=== PATIENT | female | born 1945 | race Caucasian/White ===

== ENCOUNTER 2019-05-14 01:49 | Emergency (ER) | payer MEDICARE, MEDICAID ==
[~2019-05-14] VITALS: Ht 152.4 cm; Wt 55.5 kg
[~2019-05-14 01:49] MED LIST: BUPR150T8 PO; CARV-50 PO; HYDR12.522 PO; OMEP-84 PO; VALS160T2 PO
[2019-05-14 02:27] LABS: BASOPHILS % (AUTO) 0.3 % (0-1); EOSINOPHILS # (AUTO) 0.1 X10'3 (0-0.9); EOSINOPHILS % (AUTO) 0.6 % (0-6); HEMATOCRIT 42.6 % (35.0-45.0); HEMOGLOBIN 14.2 g/dl (12.0-16.0); LYMPHOCYTES # (AUTO) 1.4 X10'3 (1.1-4.8); LYMPHOCYTES % (AUTO) 10.9 % (21-51); MEAN CORPUSCULAR HEMOGLOBIN 30.3 PG (27.0-31.0); MEAN CORPUSCULAR HGB CONC 33.5 g/dL (33.0-36.5); MEAN CORPUSCULAR VOLUME 90.5 FL (78-98); MEAN PLATELET VOLUME 9.4 FL (7.4-10.4); MONOCYTES # (AUTO) 0.4 X10'3 (0-0.9); MONOCYTES % (AUTO) 2.9 % (2-12); NEUTROPHILS # (AUTO) 10.7 X10'3 (1.8-7.7); NEUTROPHILS % (AUTO) 85.3 % (42-75); PLATELET COUNT 172 X10'3 (140-440); RED BLOOD COUNT 4.71 X10'6 (4.20-5.60); RED CELL DISTRIBUTION WIDTH 14.3 % (11.5-14.5); WHITE BLOOD COUNT 12.5 X10'3 (4.5-11.0)
[2019-05-14] MEDS ORDERED: normal saline 1000ml 1,000 ML IV ONE (02:30)
[2019-05-14 02:37] LABS: ALANINE AMINOTRANSFERASE 25 U/L (12-78); ALBUMIN 3.3 G/DL (3.4-5.0); ALKALINE PHOSPHATASE 92 IU/L (46-116); ANION GAP 9 (8-16); ASPARTATE AMINO TRANSFERASE 33 U/L (10-37); BILIRUBIN,TOTAL 0.6 MG/DL (0.1-1.0); BLOOD UREA NITROGEN 26 MG/DL (7-18); BUN/CREATININE RATIO 14.9 (6.6-38.0); CALCIUM 8.6 MG/DL (8.5-10.1); CHLORIDE 106 MMOL/L (99-107); CREATININE 1.74 MG/DL (0.40-0.90); GLUCOSE 150 MG/DL (70-104); LIPASE 142 U/L (73-393); MAGNESIUM 2.3 MG/DL (1.5-2.4); SODIUM 141 MMOL/L (135-145); TOTAL CARBON DIOXIDE 25.7 MMOL/L (24-32); TOTAL PROTEIN 6.6 G/DL (6.4-8.2); eGFR 29 ML/MIN
--- NOTE | 2019-05-14 02:56 | NUR ---
pts new temp is 97.5. bear hugger and warm blankets placed on pt. Sterile straight cath performed. Urine sample sent to lab. Pt had 75cc of chavo colored urine out.
[2019-05-14 02:58] LABS: CLARITY,URINE CLEAR (Clear); GLUCOSE, URINE NEGATIVE (Neg); KETONES,URINE TRACE mg/dl (Neg); LEUKOCYTE ESTERASE ,URINE NEGATIVE (Neg); NITRITES, URINE NEGATIVE (Neg); OCCULT BLOOD,URINE NEGATIVE (Neg); PROTEIN,URINE 30 mg/dl (Neg)
[2019-05-14 03:06] LABS: COLOR,URINE DARK YELLOW (Yellow); UA COLLECTION TYPE STRAIGHT CATH
[2019-05-14 03:07] LABS: WBC,URINE 0-4 /HPF (0-4)
[2019-05-14 03:08] LABS: BACTERIA,URINE FEW /HPF (Neg); FINE GRANULAR CAST 0-3 /LPF (NEGATIVE); MUCUS STRANDS FEW /LPF (Neg); RBC,URINE 0-2 /HPF (0-2); SQUAMOUS EPITHELIAL CELL,UR FEW /LPF (FEW)
--- NOTE | 2019-05-14 03:27 | NUR ---
PT GIVEN IV FLUIDS VIARANGER FLUID WARMER. PT HAD TWO BM'S. LOOSE BROWN STOOLS. DR. TORIBIO MADE AWARE. NO NEW ORDRS AT THIS TIME.
--- NOTE | 2019-05-14 03:56 | NUR ---
PTS SON IS AT BEDSIDE AND ALERTS STAFF THAT HIS MOTHER NEEDS TO HAVE A BM AND THAT SHE HAS ALREADY STARTED TO GO IN THE BED. STAFF WENT TO GET A NEW GOWN AND WIPES AND SON BECOMES VERBALLY AGGRESSIVE AND UPSET THAT NO ONE IS TENDING TO HIS MOTHER FAST ENOUGH. I ADVISED THE SON THAT IF SHE HAS ALREADY STARTED TO GO IN THE BED THAT WE WILL CLEAN HER UP ONCE SHE IS FINISHED (WE HAVE ALREADY DONE THIS 3 TIMES PREVIOUSLY BEFORE HE ARRIVED) - HE ASKS IF HE CAN WAIT IN THE WAITING ROOM AND ASKS WHERE IT IS. I POINTED TOWARD THE LOBBY AND TOLD HIM IT WAS AT THE MAIN ENTERANCE, WHERE HE CAME FROM. HE THEN WALKED OUT TO [facility] BEING VERBAL WITH STAFF THE WHOLE WAY. Addendum: 05/14/19 at 0408 by SHAILA CORRECTION - IT IS NOT THE PTS SON, IT IS HER SIGNIFICANT OTHER "SHARRI"
[2019-05-14 04:12] VITALS: BP 140/63
== END 2019-05-14 04:41 | disposition home or self-care (01) ==
LOC: ER 01:49
DX: R53.1 Weakness (principal); R19.7 Diarrhea, unspecified; R05 Cough; R10.84 Generalized abdominal pain; E78.00 Pure hypercholesterolemia, unspecified; K21.9 Gastro-esophageal reflux disease without esophagitis; Z91.040 Latex allergy status; Z79.899 Other long term (current) drug therapy
CPT/HCPCS: 36415; 71045; 74176; 80053; 81001; 83605; 83690; 83735; 84145; 85025; 87040; 99284; J7030

== ENCOUNTER 2019-05-17 19:14 | Inpatient (IN) | payer MEDICARE, MEDICAID ==
[~2019-05-17] VITALS: Ht 152.4 cm; Wt 54.0 kg
[2019-05-17 19:54] LABS: BASOPHILS % (AUTO) 0.4 % (0-1); EOSINOPHILS # (AUTO) 0.2 X10'3 (0-0.9); EOSINOPHILS % (AUTO) 1.3 % (0-6); HEMATOCRIT 38.7 % (35.0-45.0); HEMOGLOBIN 12.9 g/dl (12.0-16.0); LYMPHOCYTES # (AUTO) 1.5 X10'3 (1.1-4.8); MEAN CORPUSCULAR HEMOGLOBIN 30.2 PG (27.0-31.0); MEAN CORPUSCULAR HGB CONC 33.4 g/dL (33.0-36.5); MEAN CORPUSCULAR VOLUME 90.4 FL (78-98); MEAN PLATELET VOLUME 9.2 FL (7.4-10.4); MONOCYTES % (AUTO) 8.7 % (2-12); NEUTROPHILS # (AUTO) 8.9 X10'3 (1.8-7.7); NEUTROPHILS % (AUTO) 76.6 % (42-75); PLATELET COUNT 226 X10'3 (140-440); RED BLOOD COUNT 4.28 X10'6 (4.20-5.60); RED CELL DISTRIBUTION WIDTH 13.5 % (11.5-14.5); WHITE BLOOD COUNT 11.7 X10'3 (4.5-11.0)
[2019-05-17 19:57] LABS: ALANINE AMINOTRANSFERASE 26 U/L (12-78); ALBUMIN 2.6 G/DL (3.4-5.0); ALBUMIN/GLOBULIN RATIO 0.8 (1.1-1.5); ALKALINE PHOSPHATASE 91 IU/L (46-116); ANION GAP 10 (8-16); ASPARTATE AMINO TRANSFERASE 34 U/L (10-37); BILIRUBIN,TOTAL 0.3 MG/DL (0.1-1.0); BLOOD UREA NITROGEN 14 MG/DL (7-18); BUN/CREATININE RATIO 12.4 (6.6-38.0); CALCIUM 8.3 MG/DL (8.5-10.1); CHLORIDE 105 MMOL/L (99-107); CREATININE 1.13 MG/DL (0.40-0.90); GLUCOSE 136 MG/DL (70-104); POTASSIUM 3.6 MMOL/L (3.5-5.1); SODIUM 142 MMOL/L (135-145); TOTAL PROTEIN 5.9 G/DL (6.4-8.2); eGFR 47 ML/MIN
[2019-05-17] MEDS ORDERED: normal saline 1000ml 1,000 ML IVB ONE (19:58)
[2019-05-17] MEDS ORDERED: ondansetron/PF 4mg/2ml inj IV ONE (20:00)
[2019-05-17] MEDS ORDERED: normal saline 1000ML IV soln IVB ONE (20:40)
[2019-05-17 23:14] LABS: CLARITY,URINE SLIGHTLY CLOUDY (Clear); GLUCOSE, URINE NEGATIVE (Neg); KETONES,URINE NEGATIVE (Neg); LEUKOCYTE ESTERASE ,URINE NEGATIVE (Neg); NITRITES, URINE NEGATIVE (Neg); OCCULT BLOOD,URINE NEGATIVE (Neg); PH,URINE 5.5 (4.8-8.0); PROTEIN,URINE 30 mg/dl (Neg)
[2019-05-17 23:16] LABS: COLOR,URINE AMBER (Yellow); UA COLLECTION TYPE CLN CATCH MIDSTREAM
[2019-05-17 23:30] LABS: HYALINE CASTS 0-3 /LPF (NEGATIVE)
[2019-05-17 23:31] LABS: WBC,URINE 0-4 /HPF (0-4)
[2019-05-17 23:32] LABS: BACTERIA,URINE FEW /HPF (Neg)
[2019-05-17 23:33] LABS: MUCUS STRANDS MANY /LPF (Neg); SQUAMOUS EPITHELIAL CELL,UR MANY /LPF (FEW)
[2019-05-17 23:40] LABS: RBC,URINE 0-2 /HPF (0-2)
[2019-05-17] MEDS ORDERED: enoxaparin 100mg/ml syringe SUBCUT ONE (23:40)
[2019-05-17] MEDS ORDERED: aspirin 81mg tab.chew PO ONE (23:40)
[2019-05-17] MEDS ORDERED: enoxaparin 60mg/0.6ml syringe SUBCUT ONE (23:40)
[2019-05-17] MEDS ORDERED: LISI-600 PO (23:41)
[2019-05-17] MEDS ORDERED: AMLO5TAB PO (23:53)
[2019-05-18] VITALS (9 sets, daily range): BP systolic 132–172; BP diastolic 63–86
[2019-05-18] MEDS ORDERED: ondansetron/PF 4mg/2ml inj IV PRN (00:50)
[2019-05-18] MEDS ORDERED: magnesium hydroxide 30ml (MOM) UD suspension PO PRN (00:50)
[2019-05-18] MEDS ORDERED: acetaminophen 325mg tablet PO PRN (00:50)
[2019-05-18] MEDS ORDERED: mag hydrox/Alum hydrox/simeth 30ml oral suspension PO PRN (00:50)
[2019-05-18] MEDS ORDERED: regadenoson 0.4mg/5ml syringe IV PRN (00:55)
[2019-05-18] MEDS ORDERED: nitroGLYCERIN 0.4mg SUBLingual tab SL PRN (00:55)
[2019-05-18] MEDS ORDERED: aminophylline 250mg/10ml inj. IV PRN (00:55)
[2019-05-18] MEDS ORDERED: metoprolol tartrate 1mg/ml inj IV PRN (00:55)
--- NOTE | 2019-05-18 01:20 | NUR ---
pt arrived to PCU unit from the ER via [facility], was able to transfer herself from [facility] to bed. pt is alert and oriented and is able to make her needs known. Pt is not in any respiratory distress and denies chest pain at this time, is on room air. Significant other is at bedside. will continue to monitor pt
[2019-05-18 03:02] LABS: CHOL/HDL RATIO 2.5 (0.00-4.99); CHOLESTEROL 145 MG/DL (0-200); HDL CHOLESTEROL 58 MG/DL (35-60); LDL CHOLESTEROL 77 MG/DL (50-100); TRIGLYCERIDES 63 MG/DL (20-135)
--- NOTE | 2019-05-18 06:15 | NUR ---
Problems reprioritized. Patient report given, questions answered & plan of care reviewed with Stephanie RN.
--- NOTE | 2019-05-18 06:18 | NUR ---
Patient in room PCU 3012. I have received report from LUIS ANTONIO Earl and had the opportunity to ask questions and assume patient care.
[2019-05-18] MEDS ORDERED: lisinopril 10 MG tablet PO SCH (08:00)
[2019-05-18] MEDS ORDERED: heparin, porcine 5000 units/ml vial SQ SCH (08:00)
[2019-05-18] MEDS ORDERED: buPROPion SR 150mg tablet PO SCH (08:00)
[2019-05-18] MEDS ORDERED: aspirin 325mg tablet PO SCH (08:30)
[2019-05-18 09:28] LABS: BASOPHILS # (AUTO) 0.1 X10'3 (0-0.2); BASOPHILS % (AUTO) 0.6 % (0-1); EOSINOPHILS % (AUTO) 0.6 % (0-6); HEMATOCRIT 37.7 % (35.0-45.0); HEMOGLOBIN 12.7 g/dl (12.0-16.0); LYMPHOCYTES # (AUTO) 2.2 X10'3 (1.1-4.8); LYMPHOCYTES % (AUTO) 25.1 % (21-51); MEAN CORPUSCULAR HEMOGLOBIN 30.3 PG (27.0-31.0); MEAN CORPUSCULAR HGB CONC 33.6 g/dL (33.0-36.5); MEAN PLATELET VOLUME 8.8 FL (7.4-10.4); MONOCYTES # (AUTO) 0.9 X10'3 (0-0.9); MONOCYTES % (AUTO) 9.7 % (2-12); NEUTROPHILS # (AUTO) 5.6 X10'3 (1.8-7.7); PLATELET COUNT 254 X10'3 (140-440); RED BLOOD COUNT 4.19 X10'6 (4.20-5.60); RED CELL DISTRIBUTION WIDTH 13.7 % (11.5-14.5); WHITE BLOOD COUNT 8.8 X10'3 (4.5-11.0)
[2019-05-18 09:42] LABS: ALANINE AMINOTRANSFERASE 33 U/L (12-78); ALBUMIN 2.7 G/DL (3.4-5.0); ALBUMIN/GLOBULIN RATIO 0.8 (1.1-1.5); ALKALINE PHOSPHATASE 89 IU/L (46-116); ANION GAP 6 (8-16); ASPARTATE AMINO TRANSFERASE 33 U/L (10-37); BILIRUBIN,TOTAL 0.2 MG/DL (0.1-1.0); BLOOD UREA NITROGEN 11 MG/DL (7-18); BUN/CREATININE RATIO 13.8 (6.6-38.0); CALCIUM 8.4 MG/DL (8.5-10.1); CHLORIDE 108 MMOL/L (99-107); GLUCOSE 82 MG/DL (70-104); POTASSIUM 3.3 MMOL/L (3.5-5.1); SODIUM 142 MMOL/L (135-145); TOTAL CARBON DIOXIDE 27.6 MMOL/L (24-32); eGFR 70 ML/MIN
--- NOTE | 2019-05-18 09:56 | NUR ---
Sent to Dr Narayanan PAGER ID: [phone] MESSAGE: RE: Vida Muñoz [id number]. No diet orders for after GWEN. -Stephanie [phone]
--- NOTE | 2019-05-18 11:40 | NUR ---
Sent to Dr Narayanan PAGER ID: [phone] MESSAGE: RE: Vida Muñoz [id number]. Stress test results in. -Stephanie [phone]
[2019-05-18] MEDS ORDERED: CARV6.253 PO (13:57)
[2019-05-18] MEDS ORDERED: potassium Cl 20 mEq SR tablet PO STA (14:01)
[2019-05-19] MEDS ORDERED: aspirin 81mg tablet.DR PO SCH (08:00)
== END 2019-05-18 15:20 | disposition home or self-care (01) | DRG 682 ==
LOC: ER 19:16 → ED HOLD 05-18 00:46 → PCU 3S 05-18 01:20
PROVIDERS: ADMIT Internal Medicine; ATTEND Family Medicine
PROC: 4A02XM4 Measurement of Cardiac Total Activity, External Approach (ICD-10-PCS; principal; 2019-05-18)
PROC: 3E033HZ Introduction of Radioactive Substance into Peripheral Vein, Percutaneous Approach (ICD-10-PCS; 2019-05-18)
DX: N17.0 Acute kidney failure with tubular necrosis (principal); I21.A1 Myocardial infarction type 2; E87.6 Hypokalemia; E86.0 Dehydration; E78.00 Pure hypercholesterolemia, unspecified; I10 Essential (primary) hypertension; K21.9 Gastro-esophageal reflux disease without esophagitis; I95.9 Hypotension, unspecified; R00.1 Bradycardia, unspecified; Z91.040 Latex allergy status; Z79.899 Other long term (current) drug therapy; Z87.891 Personal history of nicotine dependence; Z82.49 Family history of ischemic heart disease and other diseases of the circulatory system
CPT/HCPCS: 36415; 71045; 78452; 80053; 80061; 81001; 83605; 83880; 84145; 84484; 85025; 87040; 87081; 93005; 93017; 93306; 96361; 96372; 96374; 99285; A9500; G0378; J0280; J1644; J1650; J2405; J2785

== ENCOUNTER 2019-09-08 06:19 | Day surgery (SDC) | payer MEDICARE, MEDICAID ==
[2019-09-07 13:21] LABS: BASOPHILS # (AUTO) 0.1 X10'3 (0-0.2); BASOPHILS % (AUTO) 1.4 % (0-1); EOSINOPHILS # (AUTO) 0.2 X10'3 (0-0.9); EOSINOPHILS % (AUTO) 4.4 % (0-6); HEMATOCRIT 40.5 % (35.0-45.0); HEMOGLOBIN 13.5 g/dl (12.0-16.0); LYMPHOCYTES # (AUTO) 1.7 X10'3 (1.1-4.8); LYMPHOCYTES % (AUTO) 31.4 % (21-51); MEAN CORPUSCULAR HEMOGLOBIN 29.7 PG (27.0-31.0); MEAN CORPUSCULAR HGB CONC 33.3 g/dL (33.0-36.5); MEAN CORPUSCULAR VOLUME 89.4 FL (78-98); MEAN PLATELET VOLUME 9.5 FL (7.4-10.4); MONOCYTES # (AUTO) 0.5 X10'3 (0-0.9); MONOCYTES % (AUTO) 9.3 % (2-12); NEUTROPHILS # (AUTO) 2.9 X10'3 (1.8-7.7); NEUTROPHILS % (AUTO) 53.5 % (42-75); PLATELET COUNT 247 X10'3 (140-440); RED BLOOD COUNT 4.53 X10'6 (4.20-5.60); RED CELL DISTRIBUTION WIDTH 13.9 % (11.5-14.5); WHITE BLOOD COUNT 5.4 X10'3 (4.5-11.0)
[2019-09-07 13:38] LABS: ALBUMIN 3.5 G/DL (3.4-5.0); ANION GAP 7 (8-16); BLOOD UREA NITROGEN 23 MG/DL (7-18); BUN/CREATININE RATIO 24.7 (6.6-38.0); CALCIUM 8.9 MG/DL (8.5-10.1); CHLORIDE 106 MMOL/L (99-107); CREATININE 0.93 MG/DL (0.40-0.90); GLUCOSE 73 MG/DL (70-104); SODIUM 139 MMOL/L (135-145); TOTAL CARBON DIOXIDE 25.7 MMOL/L (24-32); eGFR 59 ML/MIN
[2019-09-07 13:39] LABS: PARTIAL THROMBOPLASTIN TIME 24 SECONDS (22-32)
[2019-09-08] VITALS (11 sets, daily range): BP systolic 125–178; BP diastolic 65–97
[~2019-09-08] VITALS: Ht 152.4 cm; Wt 56.1 kg
[~2019-09-08 06:19] MED LIST changes: -CARV-50 PO; +CARV6.253 PO; -HYDR12.522 PO; +LISI-600 PO; -OMEP-84 PO; -VALS160T2 PO
[2019-09-08] MEDS ORDERED: diphenhydrAMINE 25mg capsule PO PRN (06:35)
[2019-09-08] MEDS ORDERED: normal saline 1,000 ML IV SCH (06:35)
[2019-09-08] MEDS ORDERED: LORazepam 0.5 MG tablet PO PRN (06:35)
[2019-09-08] MEDS ORDERED: CARV-49 PO (06:54)
[2019-09-08] MEDS ORDERED: ASPI-611 PO (06:56)
[2019-09-08] MEDS ORDERED: LIDOcaine/PRILOcaine 5gm cream TP ONE (07:10)
[2019-09-08] MEDS ORDERED: nitroGLYCERIN-Tridil 50MG/D5W 250 ML IV ONE (07:28)
[2019-09-08] MEDS ORDERED: LIDOcaine 1% (10mg/ml)w/preservative injection 20ml MDV ONE (07:29)
[2019-09-08] MEDS ORDERED: iohexol 350 MG/ML 50ML vial IV ONE (07:29)
[2019-09-08] MEDS ORDERED: heparin 1,000unit/ml 10ml vial 10 ML ONE (07:29)
[2019-09-08] MEDS ORDERED: verapamil 2.5 mg/ml inj IV ONE (07:29)
[2019-09-08] MEDS ORDERED: fentaNYL/PF 50MCG/1 ML 2ML syringe ONE (07:29)
[2019-09-08] MEDS ORDERED: iohexol 350MG/ML 100ml bottle IV ONE (07:29)
[2019-09-08] MEDS ORDERED: midazolam 2 mg/2 ml injection ONE (07:29)
--- NOTE | 2019-09-08 08:00 | NUR ---
Pt taken to [facility] by Leanne Leyva
--- NOTE | 2019-09-08 09:02 | NUR ---
Pt back in room. vasc band in place. Pt denies pain, denies sob, denies cp. pt vs stable as charted. Will continue to monitor
[2019-09-08] MEDS ORDERED: normal saline 1000ml 1,000 ML IV SCH (09:10)
--- NOTE | 2019-09-08 09:32 | NUR ---
pt sitting up in bed, sipping tea and eating arsenio crackers.
[2019-09-08] MEDS ORDERED: calcium carbonate 500mg chew tablet PO SCH (12:50)
== END 2019-09-08 15:00 | disposition home or self-care (01) ==
LOC: SSTAY O 06:19
PROVIDERS: ATTEND Internal Medicine Cardiovascular Disease
DX: R06.02 Shortness of breath (principal); I25.10 Atherosclerotic heart disease of native coronary artery without angina pectoris; I27.20 Pulmonary hypertension, unspecified; I10 Essential (primary) hypertension; I35.0 Nonrheumatic aortic (valve) stenosis; I25.2 Old myocardial infarction; I27.29 Other secondary pulmonary hypertension; F15.10 Other stimulant abuse, uncomplicated; F41.9 Anxiety disorder, unspecified; M16.11 Unilateral primary osteoarthritis, right hip; M17.11 Unilateral primary osteoarthritis, right knee; Z98.890 Other specified postprocedural states; Z87.891 Personal history of nicotine dependence
CPT/HCPCS: 36415; 80048; 85025; 85610; 85730; 93005; 93458; C1769; C1894; J1644; J2001; J2250; J3010; J7030; Q0163; Q9967; 99152; 99153; A4620; A5120; J3490

== ENCOUNTER 2019-10-13 14:07 | Emergency (ER) | payer MEDICARE, MEDICAID ==
[~2019-10-13] VITALS: Ht 154.9 cm; Wt 60.0 kg
[~2019-10-13 14:07] MED LIST changes: +ASPI-611 PO; +CARV-49 PO; -CARV6.253 PO
[2019-10-13 17:08] VITALS: BP 164/86
== END 2019-10-13 17:25 | disposition home or self-care (01) ==
LOC: ER 14:08
DX: S00.03XA Contusion of scalp, initial encounter (principal); I10 Essential (primary) hypertension; E78.00 Pure hypercholesterolemia, unspecified; K21.9 Gastro-esophageal reflux disease without esophagitis; Z98.890 Other specified postprocedural states; Z91.041 Radiographic dye allergy status; Z79.82 Long term (current) use of aspirin; Z79.899 Other long term (current) drug therapy; W18.39XA Other fall on same level, initial encounter; Y93.01 Activity, walking, marching and hiking; Y92.410 Unspecified street and highway as the place of occurrence of the external cause; Y99.8 Other external cause status
CPT/HCPCS: 70450; 99284

== ENCOUNTER → 2019-10-23 | Outpatient (CLI) | payer MEDICARE, MEDICAID ==
[2019-10-23] VITALS (21 sets, daily range): BP systolic 92–172; BP diastolic 49–88
== END | disposition home or self-care (01) ==
LOC: CARD DIAG 09:37
PROVIDERS: ATTEND Internal Medicine Cardiovascular Disease
DX: R55 Syncope and collapse (principal)
CPT/HCPCS: 93660

== ENCOUNTER 2019-11-16 11:47 | Outpatient (CLI) | payer MEDICARE, MEDICAID ==
[2019-11-16 13:03] LABS: ALANINE AMINOTRANSFERASE 19 U/L (12-78); ALBUMIN 3.5 G/DL (3.4-5.0); ALBUMIN/GLOBULIN RATIO 1.1 (1.1-1.5); ALKALINE PHOSPHATASE 81 IU/L (46-116); ANION GAP 6 (8-16); ASPARTATE AMINO TRANSFERASE 20 U/L (10-37); BILIRUBIN,TOTAL 0.6 MG/DL (0.1-1.0); BLOOD UREA NITROGEN 16 MG/DL (7-18); BUN/CREATININE RATIO 15.2 (6.6-38.0); CALCIUM 8.7 MG/DL (8.5-10.1); CHLORIDE 110 MMOL/L (99-107); CHOL/HDL RATIO 2.1 (0.00-4.99); CHOLESTEROL 184 MG/DL (0-200); CREATININE 1.05 MG/DL (0.40-0.90); GLUCOSE 80 MG/DL (70-104); HDL CHOLESTEROL 89 MG/DL (35-60); LDL CHOLESTEROL 78 MG/DL (50-100); POTASSIUM 3.8 MMOL/L (3.5-5.1); SODIUM 145 MMOL/L (135-145); TOTAL CARBON DIOXIDE 29.1 MMOL/L (24-32); TOTAL PROTEIN 6.6 G/DL (6.4-8.2); TRIGLYCERIDES 57 MG/DL (20-135); eGFR 51 ML/MIN
== END 2019-11-16 23:59 | disposition home or self-care (01) ==
LOC: LAB 11:47
PROVIDERS: ATTEND Physician Assistant Medical
DX: E78.5 Hyperlipidemia, unspecified (principal)
CPT/HCPCS: 36415; 80053; 80061

== ENCOUNTER 2024-01-11 17:21 | Inpatient (IN) | payer MEDICARE, MEDICAID ==
[~2024-01-11] VITALS: Ht 157.5 cm; Wt 62.0 kg
[~2024-01-11 17:21] MED LIST changes: +ALEN70TA60 PO; +CHOL20002 PO; +GINK125C PO; -LISI-600 PO; +LISI40TA13 PO; +MAGN400T39 PO; +MEMA10TA22 PO; +ROSU40TA71 PO
[2024-01-11 18:09] LABS: BASOPHILS # (AUTO) 0.1 X10'3 (0-0.2); BASOPHILS % (AUTO) 0.9 % (0-1); EOSINOPHILS # (AUTO) 0.1 X10'3 (0-0.9); EOSINOPHILS % (AUTO) 1.1 % (0-6); HEMATOCRIT 34.5 % (35.0-45.0); HEMOGLOBIN 11.2 g/dl (12.0-16.0); LYMPHOCYTES # (AUTO) 1.1 X10'3 (1.1-4.8); LYMPHOCYTES % (AUTO) 11.2 % (21-51); MEAN CORPUSCULAR HEMOGLOBIN 29.9 PG (27.0-31.0); MEAN CORPUSCULAR HGB CONC 32.4 g/dL (33.0-36.5); MEAN CORPUSCULAR VOLUME 92.4 FL (78-98); MEAN PLATELET VOLUME 9.7 FL (7.4-10.4); MONOCYTES # (AUTO) 0.6 X10'3 (0-0.9); MONOCYTES % (AUTO) 6.1 % (2-12); NEUTROPHILS # (AUTO) 8.1 X10'3 (1.8-7.7); NEUTROPHILS % (AUTO) 80.7 % (42-75); PLATELET COUNT 259 X10'3 (140-440); RED BLOOD COUNT 3.73 X10'6 (4.20-5.60); RED CELL DISTRIBUTION WIDTH 16.2 % (11.5-14.5); WHITE BLOOD COUNT 10.1 X10'3 (4.5-11.0)
[2024-01-11] MEDS: normal saline 1000ml 1,000 ML IV ONE ×2 (18:11→23:41)
[2024-01-11 18:23] LABS: ALANINE AMINOTRANSFERASE 52 U/L (12-78); ALBUMIN/GLOBULIN RATIO 0.8 (1.1-1.5); ALKALINE PHOSPHATASE 230 IU/L (46-116); ANION GAP 6 (8-16); ASPARTATE AMINO TRANSFERASE 42 U/L (10-37); BILIRUBIN,TOTAL 0.5 MG/DL (0.1-1.0); BLOOD UREA NITROGEN 30 MG/DL (7-18); BUN/CREATININE RATIO 16.9 (10.0-20.0); CALCIUM 9.6 MG/DL (8.5-10.1); CHLORIDE 101 MMOL/L (99-107); CREATININE 1.78 MG/DL (0.40-0.90); GLUCOSE 136 MG/DL (70-104); LIPASE 47 U/L (16-77); POTASSIUM 5.3 MMOL/L (3.5-5.1); SODIUM 134 MMOL/L (135-145); TOTAL CARBON DIOXIDE 26.6 MMOL/L (24-32); eCRCL 21 ML/MIN; eGFR 28 ML/MIN
[2024-01-11 19:18] LABS: BILIRUBIN,URINE SMALL (Neg); CLARITY,URINE CLOUDY (Clear); COLOR,URINE YELLOW (Yellow); GLUCOSE, URINE NEGATIVE (Neg); KETONES,URINE NEGATIVE (Neg); LEUKOCYTE ESTERASE ,URINE SMALL (Neg); NITRITES, URINE NEGATIVE (Neg); OCCULT BLOOD,URINE NEGATIVE (Neg); PROTEIN,URINE TRACE mg/dl (Neg)
[2024-01-11 19:29] LABS: SQUAMOUS EPITHELIAL CELL,UR MANY /LPF (FEW); UA COLLECTION TYPE STRAIGHT CATH
[2024-01-11 19:31] LABS: WBC CLUMPS,URINE FEW /HPF (NEGATIVE)
[2024-01-11 19:32] LABS: BACTERIA,URINE 1+ /HPF (Neg)
[2024-01-11] MEDS: CefTRIAXone/D5W-Rocephin 1gm 50 ML IV ONE (23:41)
[2024-01-12] MEDS: LORazepam 2 mg/ml vial IV ONE (00:15)
[2024-01-12] MEDS: normal saline 1000ml 1,000 ML IV ONE (00:15)
[2024-01-12] MEDS ORDERED: morphine 2 MG/ML inj. syringe IV PRN (00:40)
[2024-01-12] MEDS ORDERED: acetaminophen 325mg tablet PO PRN (00:40)
[2024-01-12] MEDS ORDERED: potassium Cl 20 mEq SR tablet PO PRN ×2 (00:40)
[2024-01-12] MEDS ORDERED: magnesium Cl slow-release 64mg tablet PO PRN (00:40)
[2024-01-12] MEDS ORDERED: ondansetron/PF 4mg/2ml inj IV PRN (00:40)
[2024-01-12] MEDS ORDERED: potassium Cl 40MEQ/1/2NS 520ml 520 ML IV PRN (00:40)
[2024-01-12] MEDS ORDERED: magnesium sulf-water 2g/50mL 50 ML IV PRN (00:40)
[2024-01-12] MEDS ORDERED: magnesium sulf-water 4G/100mL 100 ML IV PRN (00:40)
[2024-01-12] MEDS ORDERED: normal saline 1000ml 1,000 ML IV SCH (00:40)
[2024-01-12] MEDS: enalaprilat dihydrate 2.5mg/2ml vial IV ONE (02:22)
[2024-01-12] MEDS: normal saline 1000ml 1,000 ML IV SCH (03:48)
[2024-01-12] MEDS: metroNIDAZOLE-Flagyl 500mg/NS 100 ML IV SCH (03:48)
[2024-01-12 04:01] LABS: BASOPHILS % (AUTO) 0.3 % (0-1); EOSINOPHILS % (AUTO) 0 % (0-6); HEMATOCRIT 31.8 % (35.0-45.0); HEMOGLOBIN 10.4 g/dl (12.0-16.0); LYMPHOCYTES # (AUTO) 1.6 X10'3 (1.1-4.8); LYMPHOCYTES % (AUTO) 12.9 % (21-51); MEAN CORPUSCULAR HEMOGLOBIN 29.9 PG (27.0-31.0); MEAN CORPUSCULAR HGB CONC 32.7 g/dL (33.0-36.5); MEAN CORPUSCULAR VOLUME 91.5 FL (78-98); MEAN PLATELET VOLUME 9.6 FL (7.4-10.4); MONOCYTES # (AUTO) 0.7 X10'3 (0-0.9); MONOCYTES % (AUTO) 5.4 % (2-12); NEUTROPHILS # (AUTO) 10.3 X10'3 (1.8-7.7); NEUTROPHILS % (AUTO) 81.4 % (42-75); PLATELET COUNT 244 X10'3 (140-440); RED BLOOD COUNT 3.48 X10'6 (4.20-5.60); RED CELL DISTRIBUTION WIDTH 16.1 % (11.5-14.5); WHITE BLOOD COUNT 12.7 X10'3 (4.5-11.0)
[2024-01-12 04:10] LABS: APTT 27 SECONDS (22-32); PROTHROMBIN TIME 9.8 SECONDS (9.0-12.0)
[2024-01-12 04:14] LABS: INR 0.9 INR
[2024-01-12 04:17] LABS: ALANINE AMINOTRANSFERASE 44 U/L (12-78); ALBUMIN 2.8 G/DL (3.4-5.0); ALBUMIN/GLOBULIN RATIO 0.8 (1.1-1.5); ALKALINE PHOSPHATASE 208 IU/L (46-116); ANION GAP 10 (8-16); ASPARTATE AMINO TRANSFERASE 35 U/L (10-37); BILIRUBIN,TOTAL 0.3 MG/DL (0.1-1.0); BLOOD UREA NITROGEN 30 MG/DL (7-18); BUN/CREATININE RATIO 21.3 (10.0-20.0); CALCIUM 8.6 MG/DL (8.5-10.1); CHLORIDE 104 MMOL/L (99-107); CREATININE 1.41 MG/DL (0.40-0.90); GLUCOSE 119 MG/DL (70-104); POTASSIUM 4.8 MMOL/L (3.5-5.1); SODIUM 135 MMOL/L (135-145); TOTAL CARBON DIOXIDE 21.5 MMOL/L (24-32); TOTAL PROTEIN 6.4 G/DL (6.4-8.2); eCRCL 26 ML/MIN; eGFR 36 ML/MIN
[2024-01-12 04:38] LABS: ABG HCO3 19.3 mmol/L (22.0-26.0); ABG OXYGEN SATURATION 98.5 % (94-97); ABG PH (T) 7.439 (7.350-7.450); ABG PO2 (T) 108.6 mmHg (75.0-100.0); ALLEN'S TEST POSITIVE; FCOHb 0.9 % (0.0-3.9); FHHb 1.5 % (0.0-5.0); FLOW 2 L/min; FMetHb 0.3 % (0.0-1.5); FO2Hb 97.3 % (94-97); MODE NASAL CANNULA; PATIENT TEMPERATURE 36.6; TOTAL HEMOGLOBIN 10.8 G/dl (12.0-16.0)
[2024-01-12] MEDS ORDERED: ERGO500041 PO (04:42)
[2024-01-12] MEDS: K and/or MAG REPLACEMENT MC SCH (09:29)
[2024-01-12] MEDS: heparin, porcine 5000 units/ml vial SQ SCH (09:35)
[2024-01-12] MEDS: pantoprazole 40 MG vial IV SCH (09:36)
[2024-01-12 12:15] LABS: HEMOGLOBIN A1C 5.1 % (4.5-6.2)
[2024-01-12 12:47] LABS: CHOL/HDL RATIO 1.9 (0.00-4.99); CHOLESTEROL 121 MG/DL (0-200); HDL CHOLESTEROL 63 MG/DL (35-60); LDL CHOLESTEROL 48 MG/DL (50-100); THYROID STIMULATING HORMONE 1.48 ulU/ml (0.34-4.50); TRIGLYCERIDES 48 MG/DL (20-135)
[2024-01-12 13:00] VITALS: PULSE 80; RESP 16; TEMP 98.4; O2SAT 92
[2024-01-12 15:00] VITALS: BP 103/53; PULSE 85; RESP 16; TEMP 98.3; O2SAT 92
[2024-01-12 18:00] VITALS: BP 112/44; PULSE 89; RESP 16; TEMP 98.9; O2SAT 96
[2024-01-12 20:00] VITALS: RESP 16; O2SAT 96
[2024-01-12] MEDS ORDERED: ciprofloxacin lact 400MG/200ML 200 ML IV SCH (20:00)
[2024-01-12 22:00] VITALS: BP 126/45; PULSE 83; RESP 18; TEMP 98.1; O2SAT 95
[2024-01-12] MEDS: CefTRIAXone/D5W-Rocephin 1gm 50 ML IV SCH (22:56)
[2024-01-13] VITALS (8 sets, daily range): BP systolic 136–149; BP diastolic 44–71; PULSE 67–91; RESP 13–22; TEMP 97.3–99.1; O2SAT 94–99
[2024-01-13] MEDS: metroNIDAZOLE-Flagyl 500mg/NS 100 ML IV SCH (04:33)
[2024-01-13 06:34] LABS: BASOPHILS % (AUTO) 0.5 % (0-1); EOSINOPHILS # (AUTO) 0.1 X10'3 (0-0.9); EOSINOPHILS % (AUTO) 1.9 % (0-6); HEMATOCRIT 28.7 % (35.0-45.0); HEMOGLOBIN 9.3 g/dl (12.0-16.0); LYMPHOCYTES # (AUTO) 1.3 X10'3 (1.1-4.8); LYMPHOCYTES % (AUTO) 22.1 % (21-51); MEAN CORPUSCULAR HEMOGLOBIN 29.9 PG (27.0-31.0); MEAN CORPUSCULAR HGB CONC 32.3 g/dL (33.0-36.5); MEAN CORPUSCULAR VOLUME 92.6 FL (78-98); MEAN PLATELET VOLUME 9.5 FL (7.4-10.4); MONOCYTES # (AUTO) 0.6 X10'3 (0-0.9); NEUTROPHILS % (AUTO) 65.5 % (42-75); PLATELET COUNT 213 X10'3 (140-440); RED CELL DISTRIBUTION WIDTH 16.3 % (11.5-14.5); WHITE BLOOD COUNT 6.1 X10'3 (4.5-11.0)
[2024-01-13 06:47] LABS: APTT 27 SECONDS (22-32); PROTHROMBIN TIME 10.3 SECONDS (9.0-12.0)
[2024-01-13 06:59] LABS: ALANINE AMINOTRANSFERASE 36 U/L (12-78); ALBUMIN 2.4 G/DL (3.4-5.0); ALBUMIN/GLOBULIN RATIO 0.7 (1.1-1.5); ALKALINE PHOSPHATASE 156 IU/L (46-116); ANION GAP 7 (8-16); ASPARTATE AMINO TRANSFERASE 25 U/L (10-37); BILIRUBIN,TOTAL 0.2 MG/DL (0.1-1.0); BLOOD UREA NITROGEN 19 MG/DL (7-18); BUN/CREATININE RATIO 20.2 (10.0-20.0); CALCIUM 8.2 MG/DL (8.5-10.1); CHLORIDE 109 MMOL/L (99-107); CREATININE 0.94 MG/DL (0.40-0.90); GLUCOSE 87 MG/DL (70-104); MAGNESIUM 2.4 MG/DL (1.5-2.4); PHOSPHORUS 2.7 MG/DL (2.3-4.5); POTASSIUM 4.3 MMOL/L (3.5-5.1); SODIUM 137 MMOL/L (135-145); TOTAL PROTEIN 5.8 G/DL (6.4-8.2); eCRCL 39 ML/MIN; eGFR 58 ML/MIN
[2024-01-13] MEDS ORDERED: non-formulary drug (Alendronate Sodium* (Fosamax*) 1 TAB) PO SCH (15:50)
[2024-01-13] MEDS: cholecalciferol (vitamin D3) 1,000 unit (25mcg) tablet PO SCH (20:40)
[2024-01-13] MEDS: memantine 5mg tablet PO SCH (20:40)
[2024-01-14] VITALS (8 sets, daily range): BP systolic 124–157; BP diastolic 55–79; PULSE 67–87; RESP 11–18; TEMP 97–98.1; O2SAT 93–98
[2024-01-14 06:04] LABS: BASOPHILS # (AUTO) 0.1 X10'3 (0-0.2); BASOPHILS % (AUTO) 1.2 % (0-1); EOSINOPHILS # (AUTO) 0.2 X10'3 (0-0.9); EOSINOPHILS % (AUTO) 3.4 % (0-6); HEMOGLOBIN 10.7 g/dl (12.0-16.0); LYMPHOCYTES # (AUTO) 1.5 X10'3 (1.1-4.8); LYMPHOCYTES % (AUTO) 25.5 % (21-51); MEAN CORPUSCULAR HEMOGLOBIN 30.2 PG (27.0-31.0); MEAN CORPUSCULAR HGB CONC 32.5 g/dL (33.0-36.5); MEAN CORPUSCULAR VOLUME 93.1 FL (78-98); MEAN PLATELET VOLUME 9.4 FL (7.4-10.4); MONOCYTES # (AUTO) 0.6 X10'3 (0-0.9); MONOCYTES % (AUTO) 10.8 % (2-12); NEUTROPHILS # (AUTO) 3.5 X10'3 (1.8-7.7); NEUTROPHILS % (AUTO) 59.1 % (42-75); PLATELET COUNT 225 X10'3 (140-440); RED BLOOD COUNT 3.54 X10'6 (4.20-5.60); WHITE BLOOD COUNT 5.8 X10'3 (4.5-11.0)
[2024-01-14 06:13] LABS: ALANINE AMINOTRANSFERASE 26 U/L (12-78); ALBUMIN 2.5 G/DL (3.4-5.0); ALBUMIN/GLOBULIN RATIO 0.7 (1.1-1.5); ALKALINE PHOSPHATASE 160 IU/L (46-116); ANION GAP 8 (8-16); APTT 28 SECONDS (22-32); ASPARTATE AMINO TRANSFERASE 28 U/L (10-37); BILIRUBIN,TOTAL 0.3 MG/DL (0.1-1.0); BLOOD UREA NITROGEN 10 MG/DL (7-18); BUN/CREATININE RATIO 13.5 (10.0-20.0); CALCIUM 8.5 MG/DL (8.5-10.1); CHLORIDE 109 MMOL/L (99-107); CREATININE 0.74 MG/DL (0.40-0.90); GLUCOSE 87 MG/DL (70-104); PHOSPHORUS 2.6 MG/DL (2.3-4.5); PROTHROMBIN TIME 10.8 SECONDS (9.0-12.0); SODIUM 139 MMOL/L (135-145); TOTAL CARBON DIOXIDE 21.7 MMOL/L (24-32); TOTAL PROTEIN 6.1 G/DL (6.4-8.2); eCRCL 50 ML/MIN; eGFR 76 ML/MIN
[2024-01-14 06:14] LABS: POTASSIUM 4.2 MMOL/L (3.5-5.1)
[2024-01-14] MEDS: magnesium oxide 400mg tablet PO SCH (08:00)
[2024-01-14] MEDS: aspirin 81mg tab.chew PO SCH (08:00)
[2024-01-14] MEDS: buPROPion SR 150mg tablet PO SCH (11:43)
[2024-01-14] MEDS: lisinopril 20mg tablet PO SCH (11:45)
[2024-01-14] MEDS: carvedilol 6.25mg tablet PO SCH (11:46)
[2024-01-14] MEDS: atorvastatin 20mg tablet PO SCH (11:47)
[2024-01-15 02:00] VITALS: BP 159/66; PULSE 93; RESP 17; TEMP 97.7; O2SAT 96
[2024-01-15 06:00] VITALS: BP 174/86; PULSE 76; RESP 12; TEMP 97.6; O2SAT 94
[2024-01-15 06:04] LABS: BASOPHILS % (AUTO) 0.8 % (0-1); EOSINOPHILS # (AUTO) 0.2 X10'3 (0-0.9); HEMATOCRIT 31.1 % (35.0-45.0); HEMOGLOBIN 10.1 g/dl (12.0-16.0); LYMPHOCYTES # (AUTO) 1.6 X10'3 (1.1-4.8); LYMPHOCYTES % (AUTO) 28.6 % (21-51); MEAN CORPUSCULAR HEMOGLOBIN 29.8 PG (27.0-31.0); MEAN CORPUSCULAR HGB CONC 32.6 g/dL (33.0-36.5); MEAN CORPUSCULAR VOLUME 91.3 FL (78-98); MEAN PLATELET VOLUME 9.4 FL (7.4-10.4); MONOCYTES # (AUTO) 0.6 X10'3 (0-0.9); MONOCYTES % (AUTO) 10.5 % (2-12); NEUTROPHILS # (AUTO) 3.1 X10'3 (1.8-7.7); NEUTROPHILS % (AUTO) 56.1 % (42-75); PLATELET COUNT 236 X10'3 (140-440); RED CELL DISTRIBUTION WIDTH 15.8 % (11.5-14.5); WHITE BLOOD COUNT 5.5 X10'3 (4.5-11.0)
[2024-01-15 06:12] LABS: APTT 29 SECONDS (22-32); INR 1.1 INR; PROTHROMBIN TIME 11.3 SECONDS (9.0-12.0)
[2024-01-15 06:22] LABS: ALANINE AMINOTRANSFERASE 25 U/L (12-78); ALBUMIN 2.6 G/DL (3.4-5.0); ALBUMIN/GLOBULIN RATIO 0.8 (1.1-1.5); ALKALINE PHOSPHATASE 138 IU/L (46-116); ANION GAP 9 (8-16); ASPARTATE AMINO TRANSFERASE 25 U/L (10-37); BILIRUBIN,TOTAL 0.3 MG/DL (0.1-1.0); BLOOD UREA NITROGEN 10 MG/DL (7-18); BUN/CREATININE RATIO 14.3 (10.0-20.0); CALCIUM 8.7 MG/DL (8.5-10.1); CHLORIDE 110 MMOL/L (99-107); GLUCOSE 88 MG/DL (70-104); MAGNESIUM 1.5 MG/DL (1.5-2.4); PHOSPHORUS 3.2 MG/DL (2.3-4.5); POTASSIUM 4.1 MMOL/L (3.5-5.1); SODIUM 141 MMOL/L (135-145); TOTAL CARBON DIOXIDE 22.2 MMOL/L (24-32); TOTAL PROTEIN 5.9 G/DL (6.4-8.2); eCRCL 52 ML/MIN; eGFR 81 ML/MIN
[2024-01-15 08:00] VITALS: RESP 16; O2SAT 94
[2024-01-15] MEDS: pantoprazole 40mg Tablet.DR PO SCH (08:21)
[2024-01-15] MEDS ORDERED: aspirin 81mg tab.chew PO SCH (09:15)
[2024-01-15] MEDS ORDERED: magnesium oxide 400mg tablet PO SCH (09:15)
[2024-01-15 11:00] VITALS: BP 134/59; PULSE 77; RESP 13; TEMP 98.7; O2SAT 96
[2024-01-15] MEDS: aspirin 81mg tab.chew PO SCH (12:05)
[2024-01-15] MEDS: magnesium oxide 400mg tablet PO SCH (12:05)
== END 2024-01-15 13:22 | DRG 682 ==
LOC: ER 17:22 → ED HOLD 01-12 00:42 → EDBEDREQ 01-12 10:59 → PCU 3S 01-12 12:57
PROVIDERS: ADMIT Internal Medicine Critical Care Medicine; ATTEND Family Medicine
DX: N17.0 Acute kidney failure with tubular necrosis (principal); G93.41 Metabolic encephalopathy; N39.0 Urinary tract infection, site not specified; I95.9 Hypotension, unspecified; K52.9 Noninfective gastroenteritis and colitis, unspecified; E86.0 Dehydration; E87.5 Hyperkalemia; E78.00 Pure hypercholesterolemia, unspecified; M81.0 Age-related osteoporosis without current pathological fracture; K21.9 Gastro-esophageal reflux disease without esophagitis; Z79.82 Long term (current) use of aspirin; Z79.899 Other long term (current) drug therapy; Z87.891 Personal history of nicotine dependence
CPT/HCPCS: 36415; 36600; 70450; 71045; 74176; 80053; 80061; 81001; 82803; 83036; 83605; 83690; 83735; 84100; 84145; 84443; 85018; 85025; 85610; 85730; 86885; 86900; 86901; 87040; 87081; 87088; 87324; 87449; 93005; 96365; 97110; 97161; 97530; 99291; A6212; A6250; A6266; A6446; A6449; G0378; J0696; J1644; J2470; J3490; J7030

== ENCOUNTER 2024-01-26 12:53 | Emergency (ER) | payer MEDICARE, MEDICAID ==
[~2024-01-26] VITALS: Ht 154.9 cm; Wt 54.0 kg
[~2024-01-26 12:53] MED LIST changes: +ERGO500041 PO
[2024-01-26 13:00] VITALS: TEMP 97.9
[2024-01-26 16:14] VITALS: BP 145/70; PULSE 75; RESP 18; O2SAT 98
== END 2024-01-26 16:30 | disposition home or self-care (01) ==
LOC: ER 12:54
DX: S72.491A Other fracture of lower end of right femur, initial encounter for closed fracture (principal); E78.00 Pure hypercholesterolemia, unspecified; K21.9 Gastro-esophageal reflux disease without esophagitis; Z91.040 Latex allergy status; Z79.899 Other long term (current) drug therapy; Z79.82 Long term (current) use of aspirin; W19.XXXA Unspecified fall, initial encounter; Y93.89 Activity, other specified; Y92.89 Other specified places as the place of occurrence of the external cause; Y99.8 Other external cause status
CPT/HCPCS: 73502; 73552; 99285

== ENCOUNTER 2024-03-03 11:35 | Inpatient (IN) | payer MEDICARE, MEDICAID ==
[~2024-03-03] VITALS: Ht 152.4 cm; Wt 53.6 kg
[2024-03-03 12:32] LABS: BASOPHILS % (AUTO) 0.5 % (0-1); EOSINOPHILS % (AUTO) 0.3 % (0-6); HEMATOCRIT 35.2 % (35.0-45.0); HEMOGLOBIN 11.4 g/dl (12.0-16.0); LYMPHOCYTES % (AUTO) 10.5 % (21-51); MEAN CORPUSCULAR HEMOGLOBIN 29.2 PG (27.0-31.0); MEAN CORPUSCULAR HGB CONC 32.3 g/dL (33.0-36.5); MEAN CORPUSCULAR VOLUME 90.4 FL (78-98); MEAN PLATELET VOLUME 9.6 FL (7.4-10.4); MONOCYTES # (AUTO) 0.8 X10'3 (0-0.9); MONOCYTES % (AUTO) 9.1 % (2-12); NEUTROPHILS # (AUTO) 7.3 X10'3 (1.8-7.7); NEUTROPHILS % (AUTO) 79.6 % (42-75); PLATELET COUNT 172 X10'3 (140-440); WHITE BLOOD COUNT 9.2 X10'3 (4.5-11.0)
[2024-03-03 12:46] LABS: ALANINE AMINOTRANSFERASE 26 U/L (12-78); ALBUMIN 3.1 G/DL (3.4-5.0); ALBUMIN/GLOBULIN RATIO 0.8 (1.1-1.5); ALKALINE PHOSPHATASE 109 IU/L (46-116); ANION GAP 11 (8-16); ASPARTATE AMINO TRANSFERASE 21 U/L (10-37); BILIRUBIN,TOTAL 0.5 MG/DL (0.1-1.0); BLOOD UREA NITROGEN 26 MG/DL (7-18); BUN/CREATININE RATIO 28.3 (10.0-20.0); CHLORIDE 108 MMOL/L (99-107); CREATININE 0.92 MG/DL (0.40-0.90); GLUCOSE 105 MG/DL (70-104); POTASSIUM 3.6 MMOL/L (3.5-5.1); SODIUM 144 MMOL/L (135-145); TOTAL CARBON DIOXIDE 24.9 MMOL/L (24-32); TOTAL PROTEIN 6.8 G/DL (6.4-8.2); eCRCL 36 ML/MIN; eGFR 59 ML/MIN
[2024-03-03 12:54] LABS: PRO BRAIN NATRIURETIC PEPTIDE 5394 PG/ML (0-450)
[2024-03-03] MEDS ORDERED: iohexol 350MG/ML 100ml bottle IV ONE (14:24)
[2024-03-03] MEDS: ipratropium/albuterol 3ml nebule NEB ONE (15:32)
[2024-03-03 15:33] VITALS: PULSE 73; RESP 16; RESP 20; O2SAT 99
[2024-03-03 17:30] LABS: MAGNESIUM 1.9 MG/DL (1.5-2.4)
[2024-03-03] MEDS ORDERED: magnesium hydroxide 30ml (MOM) UD suspension PO PRN (18:00)
[2024-03-03] MEDS ORDERED: magnesium Cl slow-release 64mg tablet PO PRN (18:00)
[2024-03-03] MEDS ORDERED: potassium Cl 40MEQ/1/2NS 520ml 520 ML IV PRN (18:00)
[2024-03-03] MEDS ORDERED: acetaminophen 325mg tablet PO PRN (18:00)
[2024-03-03] MEDS ORDERED: potassium Cl 20 mEq SR tablet PO PRN ×2 (18:00)
[2024-03-03] MEDS ORDERED: ondansetron/PF 4mg/2ml inj IV PRN (18:00)
[2024-03-03] MEDS ORDERED: magnesium sulf-water 4G/100mL 100 ML IV PRN (18:00)
[2024-03-03] MEDS ORDERED: magnesium sulf-water 2g/50mL 50 ML IV PRN (18:00)
[2024-03-03] MEDS ORDERED: mag hydrox/Alum hydrox/simeth 30ml oral suspension PO PRN (18:00)
[2024-03-03] MEDS ORDERED: morphine 2 MG/ML inj. syringe IV PRN ×2 (18:00)
[2024-03-03] MEDS ORDERED: docusate sod 100mg capsule PO PRN (18:00)
[2024-03-03] MEDS ORDERED: ipratropium/albuterol 3ml nebule NEB PRN (18:15)
[2024-03-03] MEDS ORDERED: pantoprazole 40mg Tablet.DR PO SCH (18:45)
[2024-03-03] MEDS: K and/or MAG REPLACEMENT MC SCH (20:00)
[2024-03-03] MEDS: normal saline 500ml IV soln 500 ML IV ONE (20:05)
[2024-03-03] MEDS: methylPREDNISolone sod succ 125mg/2ml vial IV ONE (20:05)
[2024-03-03] MEDS: guaiFENesin ER 600mg tablet PO SCH (20:10)
[2024-03-03] MEDS: heparin, porcine 5000 units/ml vial SQ SCH (20:10)
[2024-03-03 21:24] VITALS: PULSE 68; RESP 20; O2SAT 95
[2024-03-04] VITALS (7 sets, daily range): BP systolic 96–137; BP diastolic 54–71; PULSE 66–83; RESP 14–20; TEMP 97.5–98.2; O2SAT 91–98
[2024-03-04] MEDS ORDERED: ALEN70TA80 PO (03:06)
[2024-03-04] MEDS ORDERED: AMLO10TA PO (03:07)
[2024-03-04] MEDS ORDERED: ATOR-2 PO (03:09)
[2024-03-04 03:12] LABS: BASOPHILS % (AUTO) 0.1 % (0-1); EOSINOPHILS % (AUTO) 0 % (0-6); HEMATOCRIT 33.6 % (35.0-45.0); HEMOGLOBIN 10.8 g/dl (12.0-16.0); LYMPHOCYTES # (AUTO) 0.7 X10'3 (1.1-4.8); LYMPHOCYTES % (AUTO) 11.7 % (21-51); MEAN CORPUSCULAR HEMOGLOBIN 28.7 PG (27.0-31.0); MEAN CORPUSCULAR VOLUME 89.6 FL (78-98); MEAN PLATELET VOLUME 9.8 FL (7.4-10.4); MONOCYTES # (AUTO) 0.1 X10'3 (0-0.9); MONOCYTES % (AUTO) 1.3 % (2-12); NEUTROPHILS # (AUTO) 4.9 X10'3 (1.8-7.7); NEUTROPHILS % (AUTO) 86.9 % (42-75); PLATELET COUNT 190 X10'3 (140-440); RED BLOOD COUNT 3.75 X10'6 (4.20-5.60); RED CELL DISTRIBUTION WIDTH 14.5 % (11.5-14.5); WHITE BLOOD COUNT 5.7 X10'3 (4.5-11.0)
[2024-03-04 03:22] LABS: ALANINE AMINOTRANSFERASE 24 U/L (12-78); ALBUMIN 2.9 G/DL (3.4-5.0); ALBUMIN/GLOBULIN RATIO 0.8 (1.1-1.5); ALKALINE PHOSPHATASE 130 IU/L (46-116); ANION GAP 11 (8-16); ASPARTATE AMINO TRANSFERASE 21 U/L (10-37); BILIRUBIN,TOTAL 0.4 MG/DL (0.1-1.0); BLOOD UREA NITROGEN 33 MG/DL (7-18); BUN/CREATININE RATIO 37.1 (10.0-20.0); CALCIUM 9.2 MG/DL (8.5-10.1); CHLORIDE 109 MMOL/L (99-107); CREATININE 0.89 MG/DL (0.40-0.90); GLUCOSE 159 MG/DL (70-104); MAGNESIUM 2.2 MG/DL (1.5-2.4); SODIUM 142 MMOL/L (135-145); TOTAL CARBON DIOXIDE 21.8 MMOL/L (24-32); TOTAL PROTEIN 6.6 G/DL (6.4-8.2); eCRCL 37 ML/MIN; eGFR 61 ML/MIN
[2024-03-04 04:59] LABS: BILIRUBIN,URINE NEGATIVE (Neg); CLARITY,URINE CLEAR (Clear); COLOR,URINE YELLOW (Yellow); GLUCOSE, URINE NEGATIVE (Neg); KETONES,URINE NEGATIVE (Neg); LEUKOCYTE ESTERASE ,URINE NEGATIVE (Neg); NITRITES, URINE NEGATIVE (Neg); OCCULT BLOOD,URINE NEGATIVE (Neg); PROTEIN,URINE 30 mg/dl (Neg); UROBILINOGEN,URINE 0.2 E.U/dL (0.2-1.0)
[2024-03-04 05:04] LABS: UA COLLECTION TYPE CLN CATCH MIDSTREAM
[2024-03-04 05:08] LABS: WBC,URINE 0-4 /HPF (0-4)
[2024-03-04 05:09] LABS: BACTERIA,URINE NONE SEEN /HPF (Neg); RBC,URINE 0-2 /HPF (0-2); SQUAMOUS EPITHELIAL CELL,UR FEW /LPF (FEW)
[2024-03-04] MEDS: normal saline 1000ml 1,000 ML IV SCH (05:41)
[2024-03-04] MEDS: normal saline 500ml IV soln 500 ML IV ONE (05:42)
[2024-03-04] MEDS ORDERED: methylPREDNISolone sod succ 125mg/2ml vial IV SCH (08:00)
[2024-03-04] MEDS ORDERED: azithromycin/NS 500mg/250ml 250 ML IV SCH (08:00)
[2024-03-04] MEDS ORDERED: CefTRIAXone 2gm/D5W 50ml BAG 50 ML IV SCH (08:00)
[2024-03-04] MEDS ORDERED: non-formulary drug (Alendronate Sodium* (Fosamax*) 1 TAB) PO SCH (08:45)
[2024-03-04] MEDS: carvedilol 6.25mg tablet PO SCH (10:10)
[2024-03-04] MEDS: buPROPion SR 150mg tablet PO SCH (10:10)
[2024-03-04] MEDS: atorvastatin 20mg tablet PO SCH (10:10)
[2024-03-04] MEDS: pantoprazole 40mg Tablet.DR PO SCH (10:11)
[2024-03-04] MEDS: aspirin 81mg, enteric-coated 1 TAB TABLET.DR PO SCH (10:11)
[2024-03-04] MEDS: CefTRIAXone 2gm/D5W 50ml BAG 50 ML IV SCH (10:33)
[2024-03-04] MEDS: methylPREDNISolone sod succ/PF 40mg inj. IV ONE (10:34)
[2024-03-04] MEDS: azithromycin/NS 500mg/250ml 250 ML IV SCH (12:08)
[2024-03-04] MEDS: memantine 5mg tablet PO SCH (20:04)
[2024-03-04] MEDS: methylPREDNISolone sod succ/PF 40mg inj. IV SCH (20:08)
[2024-03-05] VITALS (8 sets, daily range): BP systolic 102–129; BP diastolic 47–68; PULSE 61–75; RESP 14–20; TEMP 97.8–98.2; O2SAT 93–97
[2024-03-05 07:08] LABS: BASOPHILS % (AUTO) 0.1 % (0-1); EOSINOPHILS % (AUTO) 0 % (0-6); HEMATOCRIT 34.1 % (35.0-45.0); LYMPHOCYTES # (AUTO) 0.7 X10'3 (1.1-4.8); LYMPHOCYTES % (AUTO) 5.5 % (21-51); MEAN CORPUSCULAR HEMOGLOBIN 28.8 PG (27.0-31.0); MEAN CORPUSCULAR HGB CONC 32.1 g/dL (33.0-36.5); MEAN CORPUSCULAR VOLUME 89.5 FL (78-98); MEAN PLATELET VOLUME 9.8 FL (7.4-10.4); MONOCYTES # (AUTO) 0.4 X10'3 (0-0.9); MONOCYTES % (AUTO) 2.9 % (2-12); NEUTROPHILS % (AUTO) 91.5 % (42-75); PLATELET COUNT 203 X10'3 (140-440); RED BLOOD COUNT 3.81 X10'6 (4.20-5.60); RED CELL DISTRIBUTION WIDTH 14.3 % (11.5-14.5); WHITE BLOOD COUNT 13.1 X10'3 (4.5-11.0)
[2024-03-05 07:33] LABS: ALANINE AMINOTRANSFERASE 33 U/L (12-78); ALBUMIN 2.8 G/DL (3.4-5.0); ALBUMIN/GLOBULIN RATIO 0.7 (1.1-1.5); ALKALINE PHOSPHATASE 167 IU/L (46-116); ANION GAP 13 (8-16); ASPARTATE AMINO TRANSFERASE 34 U/L (10-37); BILIRUBIN,TOTAL 0.3 MG/DL (0.1-1.0); BLOOD UREA NITROGEN 47 MG/DL (7-18); BUN/CREATININE RATIO 40.2 (10.0-20.0); CALCIUM 8.6 MG/DL (8.5-10.1); CHLORIDE 110 MMOL/L (99-107); CREATININE 1.17 MG/DL (0.40-0.90); GLUCOSE 156 MG/DL (70-104); MAGNESIUM 2.4 MG/DL (1.5-2.4); POTASSIUM 4.1 MMOL/L (3.5-5.1); SODIUM 143 MMOL/L (135-145); TOTAL CARBON DIOXIDE 20.2 MMOL/L (24-32); TOTAL PROTEIN 6.6 G/DL (6.4-8.2); eCRCL 28 ML/MIN; eGFR 45 ML/MIN
[2024-03-05] MEDS: magnesium oxide 400mg tablet PO SCH (08:30)
[2024-03-05] MEDS: amLODIPine 5mg tablet PO SCH (08:31)
[2024-03-05] MEDS: lisinopril 20mg tablet PO SCH (08:32)
[2024-03-05] MEDS ORDERED: PANT40TA54 PO (12:46)
[2024-03-05] MEDS ORDERED: CEFD300C3 PO (12:46)
[2024-03-05] MEDS ORDERED: AZIT500T9 PO (12:46)
[2024-03-05] MEDS ORDERED: FLUT12AE4 INH (12:46)
[2024-03-05] MEDS ORDERED: LACT1CAP26 PO (12:46)
[2024-03-05] MEDS ORDERED: GUAI600T45 PO (12:46)
[2024-03-05] MEDS ORDERED: PRED10TA23 PO (12:54)
== END 2024-03-05 15:30 | disposition home health service (06) | DRG 193 ==
LOC: ER 11:35 → ED HOLD 17:09 → EDBEDREQ 03-04 05:23 → ORTHO 4S 03-04 08:08
PROVIDERS: ADMIT Family Medicine; ATTEND Family Medicine
PROC: B32T1ZZ Computerized Tomography (CT Scan) of Left Pulmonary Artery using Low Osmolar Contrast (ICD-10-PCS; principal; 2024-03-03)
PROC: B3201ZZ Computerized Tomography (CT Scan) of Thoracic Aorta using Low Osmolar Contrast (ICD-10-PCS; 2024-03-03)
PROC: B32S1ZZ Computerized Tomography (CT Scan) of Right Pulmonary Artery using Low Osmolar Contrast (ICD-10-PCS; 2024-03-03)
DX: J15.9 Unspecified bacterial pneumonia (principal); J96.21 Acute and chronic respiratory failure with hypoxia; J44.1 Chronic obstructive pulmonary disease with (acute) exacerbation; J90 Pleural effusion, not elsewhere classified; J44.0 Chronic obstructive pulmonary disease with (acute) lower respiratory infection; K21.9 Gastro-esophageal reflux disease without esophagitis; D64.9 Anemia, unspecified; I12.9 Hypertensive chronic kidney disease with stage 1 through stage 4 chronic kidney disease, or unspecified chronic kidney disease; Z20.822 Contact with and (suspected) exposure to COVID-19; N18.30 Chronic kidney disease, stage 3 unspecified; E78.00 Pure hypercholesterolemia, unspecified; Z79.82 Long term (current) use of aspirin; Z91.040 Latex allergy status; Z79.899 Other long term (current) drug therapy
CPT/HCPCS: 36415; 71045; 71275; 80053; 81001; 83605; 83735; 83880; 84145; 84484; 85025; 87040; 87081; 87811; 93005; 94640; 94760; 97116; 97161; 97530; 99291; A4649; A6212; A6213; A6449; G0378; J0456; J0696; J1644; J2919; J7030; J7040; Q9967

== ENCOUNTER 2024-03-20 14:12 | Outpatient (CLI) | payer MEDICARE, MEDICAID ==
[~2024-03-20] VITALS: Ht 152.4 cm; Wt 53.5 kg
[~2024-03-20 14:12] MED LIST changes: +AMLO10TA PO; +ATOR-2 PO; +AZIT500T9 PO; +CEFD300C3 PO; -CHOL20002 PO; +FLUT12AE4 INH; -GINK125C PO; +GUAI600T45 PO; +LACT1CAP26 PO; +PANT40TA54 PO; +PRED10TA23 PO; -ROSU40TA71 PO
[2024-03-20] MEDS: albuterol 2.5 MG/3 ML nebule NEB PRN (14:47)
[2024-03-20 14:48] VITALS: PULSE 64; RESP 15; O2SAT 93
[2024-03-20 15:18] VITALS: PULSE 60; RESP 16
== END 2024-03-20 23:59 | disposition home or self-care (01) ==
LOC: RT 14:12
PROVIDERS: ATTEND Physician Assistant
DX: J44.1 Chronic obstructive pulmonary disease with (acute) exacerbation (principal)
CPT/HCPCS: 94060; 94729; 94760; L3260

== ENCOUNTER 2024-04-23 03:51 | Emergency (ER) | payer MEDICARE, MEDICAID ==
[~2024-04-23] VITALS: Ht 157.5 cm; Wt 55.2 kg
[~2024-04-23 03:51] MED LIST changes: -PRED10TA23 PO
[2024-04-23 04:23] LABS: BASOPHILS # (AUTO) 0.1 X10'3 (0-0.2); BASOPHILS % (AUTO) 0.3 % (0-1); EOSINOPHILS # (AUTO) 0.1 X10'3 (0-0.9); EOSINOPHILS % (AUTO) 0.3 % (0-6); HEMATOCRIT 39.8 % (35.0-45.0); HEMOGLOBIN 12.9 g/dl (12.0-16.0); LYMPHOCYTES % (AUTO) 5.4 % (21-51); MEAN CORPUSCULAR HEMOGLOBIN 27.6 PG (27.0-31.0); MEAN CORPUSCULAR HGB CONC 32.5 g/dL (33.0-36.5); MEAN CORPUSCULAR VOLUME 85.2 FL (78-98); MEAN PLATELET VOLUME 9.2 FL (7.4-10.4); MONOCYTES # (AUTO) 0.7 X10'3 (0-0.9); MONOCYTES % (AUTO) 3.6 % (2-12); NEUTROPHILS # (AUTO) 17.4 X10'3 (1.8-7.7); NEUTROPHILS % (AUTO) 90.4 % (42-75); PLATELET COUNT 198 X10'3 (140-440); RED BLOOD COUNT 4.67 X10'6 (4.20-5.60); RED CELL DISTRIBUTION WIDTH 15.5 % (11.5-14.5); WHITE BLOOD COUNT 19.2 X10'3 (4.5-11.0)
[2024-04-23] MEDS: methylPREDNISolone sod succ 125mg/2ml vial IV ONE (04:38)
[2024-04-23 04:39] LABS: ALANINE AMINOTRANSFERASE 21 U/L (12-78); ALBUMIN 3.8 G/DL (3.4-5.0); ALKALINE PHOSPHATASE 111 IU/L (46-116); ANION GAP 10 (8-16); ASPARTATE AMINO TRANSFERASE 27 U/L (10-37); BILIRUBIN,TOTAL 0.6 MG/DL (0.1-1.0); BLOOD UREA NITROGEN 28 MG/DL (7-18); BUN/CREATININE RATIO 27.2 (10.0-20.0); CALCIUM 9.7 MG/DL (8.5-10.1); CHLORIDE 101 MMOL/L (99-107); CREATININE 1.03 MG/DL (0.40-0.90); GLUCOSE 99 MG/DL (70-104); POTASSIUM 3.8 MMOL/L (3.5-5.1); SODIUM 139 MMOL/L (135-145); TOTAL CARBON DIOXIDE 28.2 MMOL/L (24-32); TOTAL PROTEIN 7.6 G/DL (6.4-8.2); eCRCL 36 ML/MIN; eGFR 52 ML/MIN
[2024-04-23] MEDS: ipratropium/albuterol 3ml nebule NEB ONE (04:44)
[2024-04-23 04:47] VITALS: PULSE 99; RESP 16
[2024-04-23 04:47] LABS: PRO BRAIN NATRIURETIC PEPTIDE 2628 PG/ML (0-450)
[2024-04-23 04:51] VITALS: PULSE 104; RESP 18; O2SAT 100
[2024-04-23] MEDS ORDERED: PRED20TA PO (04:58)
[2024-04-23] MEDS: hyDRALAzine 10mg tablet PO SCH (05:02)
[2024-04-23] MEDS: nitroGLYCERIN 0.2mg/hour patch TD ONE (05:03)
[2024-04-23 05:04] VITALS: BP 196/158; PULSE 106; RESP 23; TEMP 98.3; O2SAT 94
[2024-04-23 05:07] LABS: BILIRUBIN,URINE NEGATIVE (Neg); CLARITY,URINE CLEAR (Clear); COLOR,URINE STRAW (Yellow); GLUCOSE, URINE NEGATIVE (Neg); KETONES,URINE NEGATIVE (Neg); LEUKOCYTE ESTERASE ,URINE NEGATIVE (Neg); NITRITES, URINE NEGATIVE (Neg); OCCULT BLOOD,URINE NEGATIVE (Neg); PH,URINE 7.5 (4.8-8.0); PROTEIN,URINE TRACE mg/dl (Neg); UROBILINOGEN,URINE 0.2 E.U/dL (0.2-1.0)
[2024-04-23 05:08] LABS: UA COLLECTION TYPE NON-SPECIFIED
[2024-04-23 05:15] LABS: BACTERIA,URINE NONE SEEN /HPF (Neg); RBC,URINE NONE SEEN /HPF (0-2); SQUAMOUS EPITHELIAL CELL,UR FEW /LPF (FEW); WBC,URINE NONE SEEN /HPF (0-4)
== END 2024-04-23 05:11 | disposition home or self-care (01) ==
LOC: ER 03:52
DX: J44.1 Chronic obstructive pulmonary disease with (acute) exacerbation (principal); I10 Essential (primary) hypertension; I35.0 Nonrheumatic aortic (valve) stenosis; E78.00 Pure hypercholesterolemia, unspecified; K21.9 Gastro-esophageal reflux disease without esophagitis; Z91.040 Latex allergy status; Z79.82 Long term (current) use of aspirin; Z79.52 Long term (current) use of systemic steroids; Z79.899 Other long term (current) drug therapy
CPT/HCPCS: 36415; 71045; 80053; 81001; 83880; 84484; 85025; 93005; 94640; 96374; 99285; J2919; Z7610

== ENCOUNTER 2024-09-20 22:36 | Inpatient (IN) | payer MEDICARE, MEDICAID ==
[~2024-09-20] VITALS: Ht 160 cm; Wt 47.3 kg
[~2024-09-20 22:36] MED LIST changes: -AMLO10TA PO; -ATOR-2 PO; -AZIT500T9 PO; +BUPR-344 PO; -BUPR150T8 PO; -CEFD300C3 PO; +CEPH-585 PO; +CHOL100046 PO; -FLUT12AE4 INH; -GUAI600T45 PO; +HYDR-3964 PO; +MAGN250T29 PO; -MAGN400T39 PO; -PANT40TA54 PO; +ROSU40TA89 PO
[2024-09-20 23:15] LABS: BASOPHILS # (AUTO) 0.1 X10'3 (0-0.2); BASOPHILS % (AUTO) 0.5 % (0-1); EOSINOPHILS # (AUTO) 0.2 X10'3 (0-0.9); EOSINOPHILS % (AUTO) 1.7 % (0-6); HEMATOCRIT 39.4 % (35.0-45.0); HEMOGLOBIN 12.7 g/dl (12.0-16.0); LYMPHOCYTES # (AUTO) 1.7 X10'3 (1.1-4.8); LYMPHOCYTES % (AUTO) 13.9 % (21-51); MEAN CORPUSCULAR HEMOGLOBIN 26.1 PG (27.0-31.0); MEAN CORPUSCULAR HGB CONC 32.3 g/dL (33.0-36.5); MEAN CORPUSCULAR VOLUME 80.6 FL (78-98); MEAN PLATELET VOLUME 9.4 FL (7.4-10.4); MONOCYTES # (AUTO) 0.6 X10'3 (0-0.9); MONOCYTES % (AUTO) 4.9 % (2-12); NEUTROPHILS # (AUTO) 9.9 X10'3 (1.8-7.7); PLATELET COUNT 223 X10'3 (140-440); RED BLOOD COUNT 4.88 X10'6 (4.20-5.60); RED CELL DISTRIBUTION WIDTH 16.3 % (11.5-14.5); WHITE BLOOD COUNT 12.5 X10'3 (4.5-11.0)
[2024-09-20] MEDS: normal saline 1000ML IV soln IVB ONE (23:33)
[2024-09-20 23:38] LABS: ALANINE AMINOTRANSFERASE 19 U/L (12-78); ALBUMIN 2.8 G/DL (3.4-5.0); ALBUMIN/GLOBULIN RATIO 0.8 (1.1-1.5); ALKALINE PHOSPHATASE 120 IU/L (46-116); ANION GAP 7 (8-16); ASPARTATE AMINO TRANSFERASE 30 U/L (10-37); BILIRUBIN,TOTAL 0.5 MG/DL (0.1-1.0); BLOOD UREA NITROGEN 30 MG/DL (7-18); BUN/CREATININE RATIO 30.9 (10.0-20.0); CALCIUM 9.4 MG/DL (8.5-10.1); CHLORIDE 106 MMOL/L (99-107); CREATININE 0.97 MG/DL (0.40-0.90); GLUCOSE 172 MG/DL (70-104); POTASSIUM 3.5 MMOL/L (3.5-5.1); SODIUM 142 MMOL/L (135-145); TOTAL CARBON DIOXIDE 29.3 MMOL/L (24-32); TOTAL PROTEIN 6.2 G/DL (6.4-8.2); eCRCL 35 ML/MIN; eGFR 55 ML/MIN
[2024-09-20 23:40] LABS: PRO BRAIN NATRIURETIC PEPTIDE 5296 PG/ML (0-450)
[2024-09-20] MEDS ORDERED: iohexol 300mg/ml 100ml inj. ONE (23:40)
[2024-09-21] VITALS (7 sets, daily range): BP systolic 91–194; BP diastolic 48–86; PULSE 70–101; RESP 12–18; TEMP 97.3–98; O2SAT 94–99
[2024-09-21 00:55] LABS: BILIRUBIN,URINE NEGATIVE (Neg); CLARITY,URINE SLIGHTLY CLOUDY (Clear); COLOR,URINE YELLOW (Yellow); GLUCOSE, URINE NEGATIVE (Neg); KETONES,URINE NEGATIVE (Neg); LEUKOCYTE ESTERASE ,URINE SMALL (Neg); NITRITES, URINE NEGATIVE (Neg); OCCULT BLOOD,URINE NEGATIVE (Neg); PROTEIN,URINE 30 mg/dl (Neg)
[2024-09-21 01:05] LABS: UA COLLECTION TYPE STRAIGHT CATH
[2024-09-21 01:06] LABS: BACTERIA,URINE FEW /HPF (Neg); RBC,URINE NONE SEEN /HPF (0-2)
[2024-09-21 01:07] LABS: MUCUS STRANDS FEW /LPF (Neg); SQUAMOUS EPITHELIAL CELL,UR FEW /LPF (FEW); TRANSITIONAL EPI CELLS,URINE FEW /HPF
[2024-09-21] MEDS: hydrALAZINE 20mg/ml inj. IV ONE ×2 (02:59→03:41)
[2024-09-21] MEDS ORDERED: FERR240T5 PO (03:15)
[2024-09-21] MEDS ORDERED: ANAS1TAB10 PO (03:15)
[2024-09-21] MEDS: piperacillin/tazo 3.375gm/50ml 50 ML IV ONE (03:45)
[2024-09-21] MEDS ORDERED: ondansetron/PF 4mg/2ml inj IV PRN (03:50)
[2024-09-21] MEDS ORDERED: magnesium sulf-water 2g/50mL 50 ML IV PRN (03:50)
[2024-09-21] MEDS ORDERED: HYDROcodone/acetaminophen 5mg/325mg tablet PO PRN (03:50)
[2024-09-21] MEDS ORDERED: potassium Cl 40MEQ/1/2NS 520ml 520 ML IV PRN (03:50)
[2024-09-21] MEDS ORDERED: acetaminophen 325mg tablet PO PRN ×2 (03:50)
[2024-09-21] MEDS ORDERED: magnesium Cl slow-release 64mg tablet PO PRN (03:50)
[2024-09-21] MEDS ORDERED: normal saline 1000ml 1,000 ML IV SCH (03:50)
[2024-09-21] MEDS ORDERED: morphine 2 MG/ML inj. syringe IV PRN (03:50)
[2024-09-21] MEDS ORDERED: potassium Cl 20 mEq SR tablet PO PRN (03:50)
[2024-09-21] MEDS ORDERED: mag hydrox/Alum hydrox/simeth 30ml oral suspension PO PRN (03:50)
[2024-09-21] MEDS ORDERED: magnesium sulf-water 4G/100mL 100 ML IV PRN (03:50)
[2024-09-21] MEDS ORDERED: hydrALAZINE 20mg/ml inj. IV PRN (04:05)
[2024-09-21] MEDS ORDERED: non-formulary drug (Alendronate Sodium* (Fosamax*) 1 TAB) PO SCH (04:05)
[2024-09-21] MEDS: normal saline 1000ml 1,000 ML IV SCH (04:10)
[2024-09-21 05:39] LABS: BILIRUBIN,URINE NEGATIVE (Neg); CLARITY,URINE SLIGHTLY CLOUDY (Clear); COLOR,URINE YELLOW (Yellow); GLUCOSE, URINE 100 mg/dl (Neg); KETONES,URINE NEGATIVE (Neg); LEUKOCYTE ESTERASE ,URINE NEGATIVE (Neg); NITRITES, URINE NEGATIVE (Neg); OCCULT BLOOD,URINE LARGE (Neg); PROTEIN,URINE TRACE mg/dl (Neg)
[2024-09-21 05:45] LABS: UA COLLECTION TYPE OTHER
[2024-09-21 05:47] LABS: WBC,URINE 0-4 /HPF (0-4)
[2024-09-21 05:49] LABS: RBC,URINE 0-2 /HPF (0-2)
[2024-09-21 05:50] LABS: AMORPHOUS URATES 1+; BACTERIA,URINE FEW /HPF (Neg); MUCUS STRANDS NONE SEEN /LPF (Neg); SQUAMOUS EPITHELIAL CELL,UR NONE SEEN /LPF (FEW)
[2024-09-21] MEDS ORDERED: lisinopril 20mg tablet PO SCH (08:00)
[2024-09-21] MEDS: carVEDilol 12.5mg tablet PO SCH (08:00)
[2024-09-21] MEDS ORDERED: carvedilol 6.25mg tablet PO SCH (08:00)
[2024-09-21] MEDS ORDERED: carVEDilol 12.5mg tablet PO SCH (08:00)
[2024-09-21] MEDS: pantoprazole 40 MG vial IV SCH (08:19)
[2024-09-21] MEDS: metroNIDAZOLE-Flagyl 500mg/NS 100 ML IV SCH (08:19)
[2024-09-21] MEDS: aspirin 81mg, enteric-coated 1 TAB TABLET.DR PO SCH (08:19)
[2024-09-21] MEDS: memantine 5mg tablet PO SCH (08:20)
[2024-09-21] MEDS: BUPROPION HCL 150MG XL 24 HR 150 MG TAB PO SCH (08:20)
[2024-09-21] MEDS: enoxaparin 40mg/0.4ml syringe SUBCUT SCH (08:21)
[2024-09-21 08:33] LABS: MAGNESIUM 2.4 MG/DL (1.5-2.4)
[2024-09-21 08:41] LABS: POTASSIUM 2.8 MMOL/L (3.5-5.1)
[2024-09-21] MEDS: K and/or MAG REPLACEMENT MC SCH (08:43)
[2024-09-21 09:03] LABS: C DIFF ANTIGEN NEGATIVE (NEGATIVE); C DIFF SPECIMEN=DIARRHEA? ACCEPTABLE; C DIFFICILE TOXINS A&B NEGATIVE (Neg)
[2024-09-21] MEDS: amLODIPine 5mg tablet PO ONE (10:17)
[2024-09-21] MEDS: potassium Cl 20 mEq SR tablet PO PRN (10:18)
[2024-09-21] MEDS: ciprofloxacin/D5W 200mg/100mL 100 ML IV SCH (10:18)
[2024-09-21] MEDS: hyDRALAzine 10mg tablet PO ONE (10:18)
[2024-09-21] MEDS: hyDRALAzine 10mg tablet PO SCH (15:30)
[2024-09-21] MEDS: atorvastatin 20mg tablet PO SCH (19:45)
[2024-09-22] MEDS: VANCOMYCIN 750MG IV in NS 250 ML IV ONE (05:14)
[2024-09-22 06:00] VITALS: BP 128/55; PULSE 79; RESP 14; TEMP 97.8; O2SAT 95
[2024-09-22 06:10] LABS: BASOPHILS % (AUTO) 0.2 % (0-1); EOSINOPHILS % (AUTO) 0.2 % (0-6); HEMATOCRIT 35.7 % (35.0-45.0); HEMOGLOBIN 11.6 g/dl (12.0-16.0); LYMPHOCYTES # (AUTO) 1.6 X10'3 (1.1-4.8); LYMPHOCYTES % (AUTO) 11.6 % (21-51); MEAN CORPUSCULAR HEMOGLOBIN 26.4 PG (27.0-31.0); MEAN CORPUSCULAR HGB CONC 32.5 g/dL (33.0-36.5); MEAN CORPUSCULAR VOLUME 81.2 FL (78-98); MEAN PLATELET VOLUME 9.5 FL (7.4-10.4); MONOCYTES # (AUTO) 0.8 X10'3 (0-0.9); MONOCYTES % (AUTO) 5.9 % (2-12); NEUTROPHILS # (AUTO) 11.5 X10'3 (1.8-7.7); NEUTROPHILS % (AUTO) 82.1 % (42-75); PLATELET COUNT 193 X10'3 (140-440)
[2024-09-22 06:20] LABS: PROTHROMBIN TIME 10.2 SECONDS (9.0-12.0)
[2024-09-22 06:49] LABS: ALANINE AMINOTRANSFERASE 17 U/L (12-78); ALBUMIN 2.5 G/DL (3.4-5.0); ALKALINE PHOSPHATASE 96 IU/L (46-116); ANION GAP 10 (8-16); ASPARTATE AMINO TRANSFERASE 24 U/L (10-37); BILIRUBIN,TOTAL 0.5 MG/DL (0.1-1.0); BLOOD UREA NITROGEN 30 MG/DL (7-18); BUN/CREATININE RATIO 36.6 (10.0-20.0); CALCIUM 8.3 MG/DL (8.5-10.1); CHLORIDE 109 MMOL/L (99-107); CREATININE 0.82 MG/DL (0.40-0.90); GLUCOSE 94 MG/DL (70-104); MAGNESIUM 2.1 MG/DL (1.5-2.4); PHOSPHORUS 3.1 MG/DL (2.3-4.5); POTASSIUM 4.9 MMOL/L (3.5-5.1); SODIUM 143 MMOL/L (135-145); TOTAL CARBON DIOXIDE 24.5 MMOL/L (24-32); eCRCL 42 ML/MIN; eGFR 67 ML/MIN
[2024-09-22] MEDS: amLODIPine 5mg tablet PO SCH (07:27)
[2024-09-22 08:00] VITALS: RESP 17; O2SAT 95
[2024-09-22 10:00] VITALS: BP 111/50; PULSE 60; RESP 14; TEMP 98.2; O2SAT 95
[2024-09-22] MEDS ORDERED: hyDRALAzine 10mg tablet PO PRN (16:50)
[2024-09-22 18:00] VITALS: BP 125/46; PULSE 65; RESP 19; TEMP 97.4; O2SAT 95
[2024-09-22 20:00] VITALS: RESP 18; O2SAT 93
[2024-09-22 21:43] VITALS: BP 120/60; PULSE 79; RESP 16; TEMP 97.4; O2SAT 94
[2024-09-23] MEDS: vancomycin/NS 1 GM ADD-VANTAGE 250 ML IV SCH (04:43)
[2024-09-23 06:00] VITALS: BP 124/56; PULSE 75; RESP 13; TEMP 97.6; O2SAT 93
[2024-09-23 06:05] LABS: BASOPHILS % (AUTO) 0.4 % (0-1); EOSINOPHILS # (AUTO) 0.2 X10'3 (0-0.9); EOSINOPHILS % (AUTO) 2.1 % (0-6); HEMATOCRIT 33.7 % (35.0-45.0); HEMOGLOBIN 11.1 g/dl (12.0-16.0); LYMPHOCYTES # (AUTO) 1.5 X10'3 (1.1-4.8); MEAN CORPUSCULAR HEMOGLOBIN 26.7 PG (27.0-31.0); MEAN CORPUSCULAR HGB CONC 32.8 g/dL (33.0-36.5); MEAN CORPUSCULAR VOLUME 81.4 FL (78-98); MEAN PLATELET VOLUME 9.6 FL (7.4-10.4); MONOCYTES # (AUTO) 0.7 X10'3 (0-0.9); NEUTROPHILS # (AUTO) 7.2 X10'3 (1.8-7.7); NEUTROPHILS % (AUTO) 74.5 % (42-75); PLATELET COUNT 176 X10'3 (140-440); RED BLOOD COUNT 4.14 X10'6 (4.20-5.60); RED CELL DISTRIBUTION WIDTH 16.9 % (11.5-14.5); WHITE BLOOD COUNT 9.6 X10'3 (4.5-11.0)
[2024-09-23 06:22] LABS: ALANINE AMINOTRANSFERASE 15 U/L (12-78); ALBUMIN 2.3 G/DL (3.4-5.0); ALKALINE PHOSPHATASE 85 IU/L (46-116); ANION GAP 7 (8-16); ASPARTATE AMINO TRANSFERASE 25 U/L (10-37); BILIRUBIN,TOTAL 0.5 MG/DL (0.1-1.0); BLOOD UREA NITROGEN 19 MG/DL (7-18); BUN/CREATININE RATIO 31.1 (10.0-20.0); CALCIUM 8.3 MG/DL (8.5-10.1); CHLORIDE 111 MMOL/L (99-107); CREATININE 0.61 MG/DL (0.40-0.90); GLUCOSE 80 MG/DL (70-104); MAGNESIUM 1.8 MG/DL (1.5-2.4); PHOSPHORUS 3.1 MG/DL (2.3-4.5); POTASSIUM 4.3 MMOL/L (3.5-5.1); SODIUM 142 MMOL/L (135-145); TOTAL CARBON DIOXIDE 24.4 MMOL/L (24-32); TOTAL PROTEIN 4.7 G/DL (6.4-8.2); eCRCL 56 ML/MIN; eGFR > 90 ML/MIN
[2024-09-23 08:00] VITALS: RESP 13; O2SAT 93
[2024-09-23 11:00] VITALS: BP 120/59; PULSE 75; RESP 18; TEMP 97.6; O2SAT 93
[2024-09-23] MEDS ORDERED: METR-159 PO (11:53)
[2024-09-23] MEDS ORDERED: LACT1CAP26 PO (11:53)
[2024-09-23] MEDS ORDERED: CIPR-202 PO (11:53)
[2024-09-23] MEDS ORDERED: metroNIDAZOLE 500mg tablet PO SCH (20:00)
[2024-09-24] MEDS ORDERED: pantoprazole 40mg Tablet.DR PO SCH (07:30)
[2024-09-25] MEDS ORDERED: VANCOMYCIN LEVEL IV ONE (04:30)
== END 2024-09-23 15:40 | disposition home health service (06) | DRG 371 ==
LOC: ER 22:36 → ED HOLD 09-21 03:26 → ORTHO 4S 09-21 07:15
PROVIDERS: ADMIT Internal Medicine; ATTEND Nurse Practitioner Family
PROC: BW211ZZ Computerized Tomography (CT Scan) of Abdomen and Pelvis using Low Osmolar Contrast (ICD-10-PCS; principal; 2024-09-21)
DX: A04.8 Other specified bacterial intestinal infections (principal); E43 Unspecified severe protein-calorie malnutrition; G93.41 Metabolic encephalopathy; R65.10 Systemic inflammatory response syndrome (SIRS) of non-infectious origin without acute organ dysfunction; Z68.1 Body mass index [BMI] 19.9 or less, adult; N39.0 Urinary tract infection, site not specified; E86.0 Dehydration; Z20.822 Contact with and (suspected) exposure to COVID-19; I11.0 Hypertensive heart disease with heart failure; I25.10 Atherosclerotic heart disease of native coronary artery without angina pectoris; E78.00 Pure hypercholesterolemia, unspecified; I50.9 Heart failure, unspecified; F03.90 Unspecified dementia, unspecified severity, without behavioral disturbance, psychotic disturbance, mood disturbance, and anxiety; I35.0 Nonrheumatic aortic (valve) stenosis; K21.9 Gastro-esophageal reflux disease without esophagitis; Z85.3 Personal history of malignant neoplasm of breast; Z91.040 Latex allergy status
CPT/HCPCS: 36415; 70450; 71045; 74177; 80053; 81001; 82948; 83605; 83735; 83880; 84100; 84132; 84145; 84484; 85025; 85610; 87040; 87045; 87046; 87077; 87081; 87088; 87186; 87324; 87449; 87502; 87503; 87811; 89055; 93005; 96360; 97110; 97116; 97162; 97530; 97535; 99285; A4353; A4615; A6213; G0378; J0360; J0744; J1650; J2470; J2543; J3370; J3490; J7030; J7050; Q9967

== ENCOUNTER 2024-11-11 09:20 | Day surgery (SDC) | payer MEDICARE, MEDICAID ==
[2024-11-10 14:45] LABS: BASOPHILS # (AUTO) 0.1 X10'3 (0-0.2); BASOPHILS % (AUTO) 0.9 % (0-1); EOSINOPHILS # (AUTO) 0.2 X10'3 (0-0.9); HEMATOCRIT 38.3 % (35.0-45.0); HEMOGLOBIN 12.5 g/dl (12.0-16.0); LYMPHOCYTES # (AUTO) 1.4 X10'3 (1.1-4.8); LYMPHOCYTES % (AUTO) 23.6 % (21-51); MEAN CORPUSCULAR HEMOGLOBIN 27.9 PG (27.0-31.0); MEAN CORPUSCULAR HGB CONC 32.7 g/dL (33.0-36.5); MEAN CORPUSCULAR VOLUME 85.4 FL (78-98); MEAN PLATELET VOLUME 9.9 FL (7.4-10.4); MONOCYTES # (AUTO) 0.5 X10'3 (0-0.9); MONOCYTES % (AUTO) 8.9 % (2-12); NEUTROPHILS # (AUTO) 3.7 X10'3 (1.8-7.7); NEUTROPHILS % (AUTO) 62.6 % (42-75); PLATELET COUNT 184 X10'3 (140-440); RED BLOOD COUNT 4.49 X10'6 (4.20-5.60); WHITE BLOOD COUNT 5.9 X10'3 (4.5-11.0)
[2024-11-10 14:55] LABS: ALBUMIN 2.9 G/DL (3.4-5.0); ANION GAP 7 (8-16); BLOOD UREA NITROGEN 17 MG/DL (7-18); BUN/CREATININE RATIO 20.7 (10.0-20.0); CALCIUM 8.8 MG/DL (8.5-10.1); CHLORIDE 109 MMOL/L (99-107); CREATININE 0.82 MG/DL (0.40-0.90); GLUCOSE 133 MG/DL (70-104); POTASSIUM 3.5 MMOL/L (3.5-5.1); SODIUM 144 MMOL/L (135-145); eGFR 67 ML/MIN
[2024-11-10 14:58] LABS: APTT 26 SECONDS (22-32); PROTHROMBIN TIME 10.4 SECONDS (9.0-12.0)
[2024-11-10 15:15] LABS: ANISOCYTOSIS 2+; LARGE PLATELETS FEW; PLATELET ESTIMATE NORMAL
[~2024-11-11] VITALS: Ht 154.9 cm; Wt 49.5 kg
[2024-11-11] VITALS (16 sets, daily range): BP systolic 132–193; BP diastolic 59–90; PULSE 65–92; RESP 16; TEMP 98.4; O2SAT 93–97
[~2024-11-11 09:20] MED LIST changes: +ANAS1TAB10 PO; -CEPH-585 PO; +CIPR-202 PO; +FERR240T5 PO; +METR-159 PO
[2024-11-11] MEDS ORDERED: LORazepam 0.5 MG tablet PO PRN (09:45)
--- NOTE | 2024-11-11 10:04 | ELECTROCARDIOGRAPH REPORT ---
[facility] Test Date: 2024-11-11 Test Time: 10:03:33 Pat Name: VERA PASTRANA Department: [facility] Patient ID: [id number] Room: Gender: F [employer] Officer: JAMAAL : 1945 Requested By: KASIA GERARD Order Number: [id number] Reading MD: Dr. VELASQUEZ Gerard Measurements Intervals [place] Rate: 65 P: 48 [place]: 144 QRS: 64 QRSD: 84 T: 88 QT: 442 QTc: 460 Interpretive Statements Sinus rhythm Left ventricular hypertrophy Nonspecific T abnormalities, lateral leads Baseline wander in lead(s) V5 Electronically Signed On 11-11-2024 17:19:[address] VELASQUEZ Gerard Please click the below link to view image of tracing.
[2024-11-11] MEDS: normal saline 1,000 ML IV SCH (10:32)
[2024-11-11] MEDS: diphenhydrAMINE 25mg capsule PO PRN (10:32)
[2024-11-11] MEDS ORDERED: fentaNYL/PF 50MCG/1 ML 2ML syringe ONE (10:56)
[2024-11-11] MEDS ORDERED: verapamil 2.5 mg/ml inj IV ONE (10:56)
[2024-11-11] MEDS ORDERED: LIDOcaine 1% (10mg/ml) 2ml vial ONE (10:56)
[2024-11-11] MEDS ORDERED: midazolam 1 mg/ML 2ml injection ONE (10:56)
[2024-11-11] MEDS ORDERED: iohexol 350MG/ML 100ml bottle IV ONE (10:57)
[2024-11-11] MEDS ORDERED: nitroGLYCERIN 500mcg/5mL D5W 5 ML IV ONE (10:57)
[2024-11-11] MEDS ORDERED: iohexol 350 MG/ML 50ML vial IV ONE (10:57)
[2024-11-11] MEDS ORDERED: heparin 1,000unit/ml 10ml vial 10 ML ONE (10:57)
[2024-11-11] MEDS ORDERED: LIDOcaine 1% 30ml preserv. free vial ONE (11:38)
[2024-11-11 12:20] LABS: ISTAT HGB ART 12.2 g/dl (12.0-16.0); ISTAT Hct ART 36 %PCV (35-45); ISTAT O2 SATURATION ARTERIAL 98 % (95-98); ISTAT SOURCE BLNK
[2024-11-11 12:20] LABS: ISTAT HGB MIX 12.2 g/dl (12.0-16.0); ISTAT Hct MIX 36 %PCV (35-45); ISTAT O2 SATURATION MIX VENOUS 66 % (60-80); ISTAT SOURCE BLNK
[2024-11-11] MEDS ORDERED: normal saline 1000ml 1,000 ML IV ONE (13:10)
--- NOTE | 2024-11-12 00:59 | CARDIOLOGY REPORT ---
DATE OF SERVICE: 11/11/2024 DICTATING PHYSICIAN: VELASQUEZ Gerard MD CARDIAC CATHETERIZATION PRIMARY PHYSICIANS: Dr. Rick Baker and Dr. Stacy Barton. [employer]ER [employer]: Dr. VELASQUEZ Gerard. INDICATION: The patient is a 79-year-old postmenopausal female with history of hypertension, hyperlipidemia, mitral stenosis, aortic stenosis, and CAD. The patient's cardiac echocardiogram on 10/29/2020 showed LV ejection of 75-80%, and there is an intracavitary gradient of 11, increased to 36 mmHg. The patient has severe aortic stenosis with aortic valve area of 0.63 cm2 with peak/mean gradient of 73/45 mmHg, moderate to severe AR, and moderate to severe calcific mitral stenosis. The patient also started on Camzyos 2.5 mg p.o. daily because of the gradient and LVH. After discussing risks, benefits, and alternative options, the patient preferred to have a definite coronary angiography. Risks, benefits, and alternative options were discussed, informed consent was obtained. PROCEDURE TECHNIQUE: The patient underwent left heart catheterization from right radial approach, 6-Montenegrin right radial sheath. Post-procedure access site hemostasis secured with radial band. The patient underwent right heart catheterization from right femoral approach, 6-Montenegr[place] right femoral artery sheath. Post-procedure access site hemostasis secured with manual compression. The patient tolerated the procedure well. Complications, none. PROCEDURES DONE: * Ultrasound-guided right radial artery utilization and access. * Right heart catheterization. * Left heart catheterization. * LVG. * Coronary cineangiography. * Conscious sedation time of 30 minutes. FINDINGS: HEMODYNAMICS: Aortic systolic 120, diastolic 58, mean 82 mmHg, LV systolic 168 and diastolic 108 mmHg. There is a mean gradient of 41.18 mmHg with aortic valve area of 0.37 cm2. History of aortic stenosis. Right atrial mean 12 mmHg, RV 61/15 mmHg, PA 58/23 mmHg. Aortic oxygen saturation 98%. Pulmonary artery oxygen saturation is 66%. Cardiac output by thermodilution method is 2.7 L/min. Cardiac index was 2.7 L/min/m2. LEFT VENTRICULOGRAM: Overall, left ventricular systolic function is hyperdynamic with LV ejection fraction of 80%. CORONARY CINEANGIOGRAPHY: Left main coronary artery is a large caliber vessel arising from the left aortic sinus with mild luminal irregularities. Engaged with a JL4 catheter from right radial band. LAD in the midportion is tortuous, LAD 30% narrowing in the mid portion. There is 30% narrowing in the proximal mid LAD. Diagonal 1 is 2.25-mm caliber with mild luminal irregularities. Diagonal 2 is 2-mm caliber with mid luminal irregularities. Circumflex artery is a medium caliber vessel arising at the bifurcation of left main coronary and courses through the left AV groove. It predominantly continues as a principal obtuse marginal branch supplying a large area of the lateral wall. There are extensive left to right collaterals opacifying the distal RCA. RCA is 100% occluded in the proximal portion with bridging collaterals. IMPRESSION: A 79-year-old female with hyperdynamic LV ejection fraction of 80%. LVEDP of 15 mmHg. There is a mean gradient of 41.18 mmHg across the aortic valve. The aortic valve area is 0.37 cm2. Pulmonary capillary wedge pressure of 25 mmHg. PA pressure of 58/23 mmHg. Proximal mid LAD 30% narrowing. Circumflex marginal with minimal disease. A 100% occluded RCA, extensive left to left and right to right collaterals opacifying distal RCA. RECOMMENDATIONS: Recommend referral to TAVR program for aortic valve replacement. Subsequently, her mitral valve needs to be evaluated and the patient is on Camzyos 2.5 p.o. daily for her LVH with intracavitary gradient. VLEASQUEZ Gerard MD TID: [id number] RECEIPT: [id number] ALBERT/JODY/JERRI cc: Rick Baker MD [facility]
== END 2024-11-11 16:00 | disposition home or self-care (01) ==
LOC: SSTAY O 09:20
PROVIDERS: ATTEND Internal Medicine Cardiovascular Disease
DX: I35.0 Nonrheumatic aortic (valve) stenosis (principal); I25.10 Atherosclerotic heart disease of native coronary artery without angina pectoris; I10 Essential (primary) hypertension; I25.82 Chronic total occlusion of coronary artery; I27.20 Pulmonary hypertension, unspecified; F41.9 Anxiety disorder, unspecified; F03.90 Unspecified dementia, unspecified severity, without behavioral disturbance, psychotic disturbance, mood disturbance, and anxiety; E78.5 Hyperlipidemia, unspecified; Z79.899 Other long term (current) drug therapy; Z79.01 Long term (current) use of anticoagulants; Z98.890 Other specified postprocedural states; Z90.12 Acquired absence of left breast and nipple
CPT/HCPCS: 36415; 80048; 82803; 85014; 85025; 85610; 85730; 93005; 93460; 99152; 99153; A6258; A6402; C1725; C1751; C1769; C1894; J1644; J2003; J2250; J3010; J3490; J7030; Q0163; Q9967; Z7610; 76937; 85008; A6449

== ENCOUNTER 2024-11-20 11:02 | Outpatient (CLI) | payer MEDICARE, MEDICAID ==
[~2024-11-20 11:02] MED LIST changes: -CIPR-202 PO; -ERGO500041 PO; +IODIXANOL 320 MG/ML INFUS..BTL 100ML IV ONE; -LACT1CAP26 PO; -METR-159 PO
[2024-11-20 11:55] LABS: BASOPHILS # (AUTO) 0.1 X10'3 (0-0.2); BASOPHILS % (AUTO) 1.1 % (0-1); EOSINOPHILS # (AUTO) 0.2 X10'3 (0-0.9); EOSINOPHILS % (AUTO) 3.5 % (0-6); HEMATOCRIT 38.7 % (35.0-45.0); HEMOGLOBIN 12.6 g/dl (12.0-16.0); LYMPHOCYTES # (AUTO) 1.6 X10'3 (1.1-4.8); LYMPHOCYTES % (AUTO) 28.1 % (21-51); MEAN CORPUSCULAR HGB CONC 32.6 g/dL (33.0-36.5); MEAN CORPUSCULAR VOLUME 85.7 FL (78-98); MEAN PLATELET VOLUME 9.7 FL (7.4-10.4); MONOCYTES # (AUTO) 0.6 X10'3 (0-0.9); MONOCYTES % (AUTO) 9.7 % (2-12); NEUTROPHILS # (AUTO) 3.3 X10'3 (1.8-7.7); NEUTROPHILS % (AUTO) 57.6 % (42-75); PLATELET COUNT 188 X10'3 (140-440); RED BLOOD COUNT 4.51 X10'6 (4.20-5.60); RED CELL DISTRIBUTION WIDTH 18.4 % (11.5-14.5); WHITE BLOOD COUNT 5.8 X10'3 (4.5-11.0)
[2024-11-20 12:11] LABS: APTT 25 SECONDS (22-32); PROTHROMBIN TIME 10.2 SECONDS (9.0-12.0)
[2024-11-20 12:20] LABS: ALANINE AMINOTRANSFERASE 26 U/L (12-78); ALBUMIN 3.3 G/DL (3.4-5.0); ALKALINE PHOSPHATASE 113 IU/L (46-116); ANION GAP 7 (8-16); ASPARTATE AMINO TRANSFERASE 21 U/L (10-37); BILIRUBIN,TOTAL 0.3 MG/DL (0.1-1.0); BLOOD UREA NITROGEN 24 MG/DL (7-18); CALCIUM 9.2 MG/DL (8.5-10.1); CHLORIDE 110 MMOL/L (99-107); CREATININE 0.89 MG/DL (0.40-0.90); GLUCOSE 109 MG/DL (70-104); POTASSIUM 3.9 MMOL/L (3.5-5.1); PRO BRAIN NATRIURETIC PEPTIDE 3498 PG/ML (0-450); SODIUM 146 MMOL/L (135-145); TOTAL CARBON DIOXIDE 28.6 MMOL/L (24-32); TOTAL PROTEIN 6.7 G/DL (6.4-8.2); eGFR 61 ML/MIN
--- NOTE | 2024-11-20 14:09 | RADIOLOGY REPORT ---
Procedure: DI CHEST,TWO VIEWS 11/20/2024 11:50 AM Indication: TAVR Comparison: None TECHNIQUE: DI CHEST,TWO VIEWS FINDINGS: Medical devices: None. Cardiomediastinal: The heart is normal in size. Pulmonary vasculature is within normal limits. Lungs: No focal pulmonary opacity is seen. The costophrenic angles are clear. No pneumothorax. Bones/soft tissues: No acute abnormality is noted. IMPRESSION: No acute cardiopulmonary disease.
--- NOTE | 2024-11-25 17:37 | RADIOLOGY REPORT ---
Procedure: CT CTA TAVR Reason for study/Clinical History: Chest pain, evaluate for dissection. Comparison Study: None Exam Date: 11/20/2024 12:51 PM TECHNIQUE: Multiplanar reformatted images were generated from volumetric data acquired on a multidetector CT [facility]. Cardiac gating was utilized. Arterial phase images were obtained through the chest, abdomen and pelvis following intravenous administration of contrast material. 100 mL visipaque [address] dose reduction techniques were utilized. 3-D reconstructions were performed on an independent work station. Radiation Dose Information: CT Dose: CTDI volume is 74 mGy. Dose-length product is 1821 mGy*cm FINDINGS: Vascular: Aortic measurements: Aortic annulus: 24.6 x 19.7 mm Sinus of valsalva: right cusp 27.6 mm, left cusp 30.3 mm, non-coronary cusp 30.8 mm Right coronary distance: 16 Left coronary distance: 15.9 ST junction 26.1 mm Ascending aorta 33.2 mm Aortic arch 26 mm Descending aorta 26 mm Aortic hiatus 23 mm Upper abdominal aorta 20 mm Minimal abdominal aorta 12 mm Right common iliac 6.01 mm, tortuosity index 1.26 Left common iliac 6.95 mm, tortuosity index 1.16 There is normal caliber of aorta. No aortic dissection. Aortic arch anatomy is conventional. There is conventional coronary artery anatomy. Scattered calcified atherosclerotic plaque. Moderate high-gra de stenosis of the proximal celiac artery. Moderate high-grade stenosis of the proximal right renal a rtery. No central pulmonary embolism. Main pulmonary artery is dilated. Heart is normal. There are no intracardiac filling defects. No pericardial effusion. Mediastinum: There is no significant intrathoracic or axillary lymphadenopathy by CT size criteria. Lungs: Emphysematous changes in both lungs. Atelectasis and consolidation in the lung bases. Pleura: Small left pleural effusion. Chest wall: No acute abnormality. Abdomen and Pelvis: Liver: Normal in appearance. Gallbladder: Normal in appearance. Spleen: Normal in appearance. Pancreas: Normal in appearance. Adrenals: Normal in appearance. Kidneys: Bilateral renal cortical thinning and scarring. Mild bilateral hydronephrosis. Definite obst ructing ureteral calculus identified. Bowel: Normal in appearance. Peritoneum: No free air or free fluid. Lymph nodes: No lymphadenopathy by CT size criteria. Pelvic structures: Limited evaluation of the pelvis due to metallic artifact. Right ovarian cyst. Bones: Rotoscoliosis of the thoracolumbar spine with associated multilevel degenerative disease. Grad e 1 spondylolisthesis of L5 on S1. IMPRESSION: 1. TAVR planning with vascular measurements as described above. 2. 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 Dilated main pulmonar y artery suggesting pulmonary arterial hypertension. 3. Smoking-related lung disease. Small left pleural effusion with associated bibasilar atelectasis an d consolidation. Clinical correlation and continued follow-up is recommended. 4. Bilateral renal cortical thinning and scarring. Mild bilateral hydronephrosis. No definite obstr ucting calculus identified. This could be further evaluated with CT urogram or Lasix renal scan. Limi kamron evaluation of the pelvis. Right ovarian cyst. HS:Y
== END 2024-11-20 23:59 | disposition home or self-care (01) ==
LOC: RAD 11:02
PROVIDERS: ATTEND Internal Medicine Cardiovascular Disease
DX: N21.1 Calculus in urethra (principal); N13.30 Unspecified hydronephrosis; N83.201 Unspecified ovarian cyst, right side; J43.9 Emphysema, unspecified; J98.11 Atelectasis; J90 Pleural effusion, not elsewhere classified; I35.0 Nonrheumatic aortic (valve) stenosis; R07.9 Chest pain, unspecified; R06.02 Shortness of breath; I65.29 Occlusion and stenosis of unspecified carotid artery; M41.85 Other forms of scoliosis, thoracolumbar region; M47.815 Spondylosis without myelopathy or radiculopathy, thoracolumbar region; M43.17 Spondylolisthesis, lumbosacral region
CPT/HCPCS: 36415; 71046; 71275; 74174; 75572; 80053; 83880; 85025; 85610; 85730; Q9967

== ENCOUNTER 2025-03-12 16:39 | Emergency (ER) | payer MEDICARE, MEDICAID ==
[~2025-03-12] VITALS: Ht 152.4 cm; Wt 50.2 kg
[~2025-03-12 16:39] MED LIST changes: -CARV-49 PO; +CARV6.253 PO; -CHOL100046 PO; +DOCU-392 PO; +HYDR-3964; -HYDR-3964 PO; -IODIXANOL 320 MG/ML INFUS..BTL 100ML IV ONE; +LACT1CAP26 PO; -LISI40TA13 PO; +LISI40TA20 PO; -MAGN250T29 PO; +MAGN400C PO; +VITAFUSION CALCIUM
[2025-03-12 16:42] VITALS: TEMP 97.1
--- NOTE | 2025-03-12 16:53 | Physician Documentation ---
History of Present Illness ~ Chief Complaint: Hypertension Stated Complaint: HIGH BLOOD PRESSURE Time Seen by MD: 16:42 Primary Medical Doctor: Dr. Gerard HPI Very pleasant 79-year-old female presents after attempting to go to cardiac rehab today. She is advised her blood pressure was too high to allow her to participate. Therefore she was sent to the ER for evaluation. She has asymptomatic and has been throughout the day. Denies any headache shortness of breath chest pain nausea vomiting In December patient did have a pacemaker placed. Her blood pressure was reportedly in the 170 systolic Day of Onset: Mar 12, 2025 Medication Reconciliation Allergies: Coded Allergies: Latex, Natural Rubber (Verified Allergy, Unknown, RASH, 03/12/25) Scheduled Alendronate Sodium* (Fosamax*), 1 TAB PO Q7D, (Reported) Anastrozole* (Arimidex*), 1 TAB PO DAILY, (Reported) Aspirin (Aspir 81), 1 TAB PO DAILY, (Reported) Bupropion XL (Bupropion Xl), 1 TAB PO DAILY, (Reported) Carvedilol (Carvedilol), 6.25 MG PO BID Docusate Sodium (Docusate Sodium), 1 CAP PO BID, (Reported) Ferrous Gluconate (Ferrous Gluconate), 1 TAB PO Q48H, (Reported) Lactobacillus Rhamnosus (Culturelle), 1 CAP PO DAILY Lisinopril* (Lisinopril*), 1 TAB PO DAILY, (Reported) Magnesium Oxide (Magnesium), 1 CAP PO DAILY, (Reported) Memantine HCl (Memantine HCl), 1 TAB PO BID, (Reported) Rosuvastatin Calcium (Rosuvastatin Calcium), 1 TAB PO QPM, (Reported) Miscellaneous Medications Hydrocodone Bit/Acetaminophen (Hydrocodon-Acetaminophen 5-325), (Reported) [vitafusion calcium], (Reported) Past Medical History Past Medical History: *CARDIOVASCULAR*, High Cholesterol, GERD, *PSYCH* Past Surgical History: orthopedic surgeries Patient History: Patient reports no known family medical history. Alcohol Use: None Drug Use: none Lives with: Family Lives In: Home Occupation: retired Review of Systems All Other Systems at this time: Reviewed and Negative ROS As stated above in the HPI, otherwise all systems are reviewed and negative. Physical Exam Vital Signs: Temperature: 97.1, Heart Rate: 60, Respiratory Rate: 16, BP: 179/67, Pulse Oximetry: 96, Weight: 50.180 Oxygen Flow Rate: 0 Physical Exam General: Alert, no apparent distress. HEENT: PERRL, EOMI, no injection, moist mucous membranes. Neck: Full range of motion. Respiratory: Lungs clear, no respiratory distress. Chest: No accessory muscle use. Cardiovascular: Regular rate and rhythm, no murmurs. Gastrointestinal: Soft, nontender, nondistended. Bowels sounds present. Extremities: Normal range of motion, no deformity. Neurologic: Oriented x4. Psychiatric: Normal mood and affect. Skin: Normal color, warm and dry. No edema, no ecchymosis. Progress Results/Orders Results/Orders Medications Received in ER Medications (Trade) Dose Ordered Sig/Anuj Route PRN Reason Start Time Stop Time Status Last Admin Dose Admin (Apresoline 10mg tablet) 10 mg NOW ONCE PO 03/12/25 17:55 03/12/25 17:56 DC 03/12/25 18:15 10 MG Vital Signs 03/12/25 03/12/25 03/12/25 03/12/25 16:42 17:23 17:26 18:15 Temp 97.1 Pulse 60 60 63 Resp 16 10 B/P (MAP) 179/67 165/65 (98) Pulse Ox 96 93 O2 Flow Rate 0 0 03/12/25 03/12/25 03/12/25 18:16 19:15 19:16 Pulse 65 64 Resp 15 16 B/P (MAP) 195/78 (117) 163/84 (110) Pulse Ox 94 94 O2 Flow Rate 0 0 Laboratory Tests Test 03/12/25 17:16 03/12/25 19:42 White Blood Count 8.1 Red Blood Count 4.28 Hemoglobin 12.3 Hematocrit 37.5 Mean Corpuscular Volume 87.6 Mean Corpuscular Hemoglobin 28.8 Mean Corpuscular Hemoglobin Concent 32.8 L Red Cell Distribution Width 15.4 H Platelet Count 135 L Mean Platelet Volume 9.8 Neutrophils (%) (Auto) 74.2 Lymphocytes (%) (Auto) 16.3 L Monocytes (%) (Auto) 6.4 Eosinophils (%) (Auto) 2.1 Basophils (%) (Auto) 1.0 Neutrophils # (Auto) 6.0 Lymphocytes # (Auto) 1.3 Monocytes # (Auto) 0.5 Eosinophils # (Auto) 0.2 Basophils # (Auto) 0.1 CBC Comment Sodium Level 143 Potassium Level 3.7 Chloride Level 107 Carbon Dioxide Level 28.3 Anion Gap 8 Blood Urea Nitrogen 23 H Creatinine 0.99 H Estimated GFR/1.73 m2 54 BUN/Creatinine Ratio 23.2 H Glucose Level 115 H Calcium Level 9.5 Troponin I High Sensitivity 59 *H 56 *H Pro-B-Type Natriuretic Peptide 6696 H Albumin 3.6 Chemistry Comments Troponin I High Sens Percent Delta 5 Troponin I Hi Sens Absolute Change -3 Medical Decision Making Findings Pleasant 79-year-old female has remained asymptomatic throughout her stay. I Did provide her with a an antihypertensive drug, moderate improvement. Patient's troponins were actually less than the last time she presented to the hospital. And her proBNP was not elevated compared to her previous ProBNP values Offered hospital admission to this patient, however she declined Patient evaluated at 8:00 p.m. and it was though the shortness of breath and/or chest pain. She has received medication for blood pressure. Her exam is reassuring and epeated troponin is trended down. She has been safely discharged in the emergency department to continue with the medications to follow up with the primary care physician. Differential Dx:Considerations: Include CHF, Include HTN, essential, Include HTN, accelerated, Include HTN, malignant, Include HTN, encephalopathy, Include medical noncompliance, Include medication withdrawal, Include pulmonary edema, Include renal failure, Include -induced, Include other Departure Disposition: 01 HOME / SELF CARE / HOMELESS Impression: Primary Impression: Benign hypertension Condition: Improved Discharge Instructions: Hypertension, Adult, [id number] Additional Instructions: Your labs in the emergency department tonight are all reassuring. Chest x-ray imaging EKG also. Please continue with the medications as directed by the primary care physician and make follow up appointment. Return to the emergency department as needed. Thank you for visiting emergency department [facility]. Referrals: NO PRIMARY CARE PROVIDER (PCP) Education Educated: Patient, Family Educated regarding: diagnosis, treatment Signature Scribe Signature: . Attestation: . MARYSOL GRAHAM ASSISTANT STATISTICIAN Mar 12, 2025 16:53 MACIEL ROBINS PAC Mar 12, 2025 20:21
--- NOTE | 2025-03-12 17:05 | ELECTROCARDIOGRAPH REPORT ---
[facility] Test Date: 2025-03-12 Test Time: 17:00:51 Pat Name: VERA PASTRANA Department: EMERGENCY ROOM Room: Gender: F Arborist Representative: CONI : 1945 Requested By: MARYSOL GRAHAM Order Number: [id number] Reading MD: Measurements Intervals [place] Rate: 60 P: 0 [place]: 191 QRS: 66 QRSD: 152 T: 205 QT: 492 QTc: 492 Interpretive Statements Atrial-paced complexes IVCD, consider atypical LBBB Artifact in lead(s) I,III,aVR,aVL,aVF Please click the below link to view image of tracing.
[2025-03-12 17:26] LABS: MEAN PLATELET VOLUME 9.8 FL (7.4-10.4); RED CELL DISTRIBUTION WIDTH 15.4 % (11.5-14.5)
--- NOTE | 2025-03-12 17:28 | RADIOLOGY REPORT ---
CHEST RADIOGRAPH Indication: CP Technique: Single frontal view of the chest was obtained COMPARISON: DI CHEST,SINGLE VIEW on DOS: 02/08/25, DI CHEST,SINGLE VIEW on DOS: 01/01/25, DI CHEST,SINGLE VIEW on DOS: 01/01/25, DI CHEST,TWO VIEWS on DOS: 12/23/24, DI CHEST,TWO VIEWS on DOS: 11/20/24 FINDINGS: Lines and Tubes: Left chest pacemaker Lungs: Clear Pleura: No effusion. No pneumothorax. Cardiomediastinal contours: Unremarkable Bones: Right shoulder arthroplasty. IMPRESSION: No acute disease.
[2025-03-12 17:48] LABS: CREATININE 0.99 MG/DL (0.40-0.90); PRO BRAIN NATRIURETIC PEPTIDE 6696 PG/ML (0-450); TOTAL CARBON DIOXIDE 28.3 MMOL/L (24-32); eCRCL 33 ML/MIN; eGFR 54 ML/MIN
[2025-03-12 20:34] VITALS: BP 174/78; PULSE 66; RESP 16; O2SAT 98
== END 2025-03-12 20:37 | disposition home or self-care (01) ==
LOC: ER 16:40
DX: I10 Essential (primary) hypertension (principal); E78.00 Pure hypercholesterolemia, unspecified; K21.9 Gastro-esophageal reflux disease without esophagitis; Z91.040 Latex allergy status; Z95.0 Presence of cardiac pacemaker; Z79.899 Other long term (current) drug therapy; Z79.82 Long term (current) use of aspirin; Z98.890 Other specified postprocedural states
CPT/HCPCS: 36415; 71045; 80048; 83880; 84484; 85025; 93005; 99285

== ENCOUNTER 2025-04-05 11:43 | Emergency (ER) | payer MEDICARE, MEDICAID ==
[~2025-04-05] VITALS: Ht 152.4 cm; Wt 51.4 kg
[~2025-04-05 11:43] MED LIST changes: +ASPI-1071 PO; +CLOP-32 PO; -LACT1CAP26 PO
[2025-04-05 11:49] VITALS: TEMP 98.7
--- NOTE | 2025-04-05 12:15 | Physician Documentation ---
History of Present Illness General Chief Complaint: Urinary Symptoms Stated Complaint: URINARY SYMPTOMS Time Seen by MD: 12:14 OK to notify your PCP?: No Primary Medical Doctor: Dr. Gerard Source: family, RN notes reviewed Mode of Arrival: POV Exam Limitations: clinical condition (Dementia) History of Present Illness Initial Comments 79-year-old female, with history of dementia and urinary tract infections, brought to the ED by her son with concerns of urinary tract infection. Since yesterday patient has had urinary frequency and bladder fullness after urinating. She also has had some mild incontinence of her urine. She has not had any pain or burning with urination. Today son noted that she was somewhat confused. He states these symptoms are very typical for her when she has a urinary tract infection. Medication Reconciliation Allergies: Coded Allergies: Latex, Natural Rubber (Verified Allergy, Unknown, RASH, 03/15/25) Scheduled Alendronate Sodium* (Fosamax*), 1 TAB PO Q7D, (Reported) Anastrozole* (Arimidex*), 1 TAB PO DAILY, (Reported) Aspirin (Aspir 81), 1 TAB PO DAILY, (Reported) Aspirin (Ecotrin*), 1 TAB PO DAILY Bupropion XL (Bupropion Xl), 1 TAB PO DAILY, (Reported) Carvedilol (Carvedilol), 6.25 MG PO BID Cefpodoxime Proxetil (Vantin), 1 TAB PO Q12H Clopidogrel Bisulfate (Plavix), 1 TAB PO DAILY Docusate Sodium (Docusate Sodium), 1 CAP PO BID, (Reported) Ferrous Gluconate (Ferrous Gluconate), 1 TAB PO Q48H, (Reported) Lisinopril* (Lisinopril*), 1 TAB PO DAILY, (Reported) Magnesium Oxide (Magnesium), 1 CAP PO DAILY, (Reported) Memantine HCl (Memantine HCl), 1 TAB PO BID, (Reported) Rosuvastatin Calcium (Rosuvastatin Calcium), 1 TAB PO QPM, (Reported) Miscellaneous Medications Hydrocodone Bit/Acetaminophen (Hydrocodon-Acetaminophen 5-325), (Reported) [vitafusion calcium], (Reported) Past Medical History Past Medical History: Dementia, *CARDIOVASCULAR*, High Cholesterol, GERD, UTI, *PSYCH* Past Surgical History: orthopedic surgeries Smoking: Non-Smoker Alcohol Use: None Drug Use: none Lives with: Family Lives In: Home Occupation: retired Unable to obtain complete PMH: dementia Review of Systems Unable to obtain complete ROS: dementia Physical Exam Physical Exam Vital Signs: RN Vital Signs have been reviewed: Yes, Temperature: 98.7, Source: Oral, Heart Rate: 73, Respiratory Rate: 18, BP: 145/65, Pulse Oximetry: 96, Weight: 51.360 Oxygen Flow Rate: 0 Pulse Oximetry Reflects: adequate oxygenation Physical Exam VITALS: Reviewed and as above. GENERAL: Alert, no apparent distress. HEENT: Normocephalic, atraumatic, PERRL, EOMI, dry mucosa. RESPIRATORY: Lungs clear, normal breath sounds, no respiratory distress. CHEST: No accessory muscle use, no retractions CV: Regular rate, regular rhythm, no edema, no murmur, No: JVD GI: Soft, non-tender, bowels sounds present, no rebound, guarding, or rigidity MUSCULOSKELETAL: No deformities, no edema SKIN: Warm and dry, no rash NEURO: Oriented x1, No motor or sensory deficit Progress Results/Orders Reviewed/noted all lab results: Yes Results/Orders Completed Orders - OHAMAYA CHRISTIAN MD Ua W/Microscopic, Cult If Ind (04/05/25 12:00) Vital Signs 04/05/25 04/05/25 11:49 12:49 Temp 98.7 Pulse 73 72 Resp 18 20 B/P (MAP) 145/65 132/84 (100) Pulse Ox 96 95 O2 Flow Rate 0 0 Laboratory Tests Test 04/05/25 12:00 Urine Specimen Description Cln catch midstream Urine Color Yellow Urine Clarity Clear Urine pH 7.0 Urine Specific [place] 1.010 Urine Protein Trace Urine Glucose (UA) Negative Urine Ketones Negative Urine Occult Blood Negative Urine Nitrite Negative Urine Bilirubin Negative Urine Urobilinogen 0.2 Urine Leukocyte Esterase Negative Urine RBC None seen Urine WBC 0-4 Urine Squamous Epithelial Cells Few Urine Bacteria None seen Urine Culture Indicated Not ind Volume Urine Centrifuged 10 ml Urine Comment Medical Decision Making Additional information obtaine: old records Findings Patient is a 79-year-old female complains of clinical symptoms of UTI, the patient's urine does appear unaffected but given her symptoms the patient will be treated with antibiotics. The prior hospitalization has been reviewed the patient's pulse oximetry was interpreted as normal and adequate she has a benign exam. The patient will be discharged with instructions to return for worsening of her symptoms. Differential Diagnosis Urinary tract infection renal colic colitis enteritis Departure Time of Disposition: 12:42 Disposition: 01 HOME / SELF CARE / HOMELESS Impression: Primary Impression: Urinary tract infection symptoms Condition: Stable Discharge Instructions: Urinary Tract Infection, Adult Additional Instructions: Take antibiotics as prescribed. Follow up with your regular doctor. Return to the ER for worsening symptoms or other concerns. Prescriptions Cefpodoxime Proxetil (Vantin) 200 Mg Tablet 1 TAB PO Q12H for 7 Days, #14 TAB Prov: AMAYA AVALOS MD 04/05/25 Education Educated: Patient Educated regarding: diagnosis, treatment, need for follow up Signature Scribe Signature: Scribed for Amaya Avalos MD by Ezequiel Sheridan . 04/05/25 12:39 Attestation: The note accurately reflects work and decisions made by me.Amaya Avalos MD 04/07/25 14:12 AMAYA AVALOS MD Apr 05, 2025 12:15 EZEQUIEL CRUZ Apr 05, 2025 12:40
[2025-04-05 12:24] LABS: LEUKOCYTE ESTERASE ,URINE NEGATIVE (Neg); NITRITES, URINE NEGATIVE (Neg); OCCULT BLOOD,URINE NEGATIVE (Neg)
[2025-04-05 12:26] LABS: UA COLLECTION TYPE CLN CATCH MIDSTREAM
[2025-04-05 12:30] LABS: SQUAMOUS EPITHELIAL CELL,UR FEW /LPF (FEW)
[2025-04-05] MEDS ORDERED: CEFP200T13 PO (12:38)
[2025-04-05 12:49] VITALS: BP 132/84; PULSE 72; RESP 20; O2SAT 95
== END 2025-04-05 12:54 | disposition home or self-care (01) ==
LOC: ER 11:44
DX: N39.0 Urinary tract infection, site not specified (principal); E78.00 Pure hypercholesterolemia, unspecified; K21.9 Gastro-esophageal reflux disease without esophagitis; Z91.040 Latex allergy status; Z87.440 Personal history of urinary (tract) infections; Z79.82 Long term (current) use of aspirin; Z79.899 Other long term (current) drug therapy; Z98.890 Other specified postprocedural states
CPT/HCPCS: 81001; 99284